=== PATIENT | female | born 1960 | race Caucasian/White ===

== ENCOUNTER 2021-02-15 18:34 | Observation (INO) | payer MEDICARE, OTHER, SELFPAY ==
[2021-02-15] VITALS (10 sets, daily range): BP systolic 111–119; BP diastolic 63–99; PULSE 83–92; RESP 13–25; TEMP 36.4–36.6; O2SAT 96–99
--- NOTE | ~2021-02-15 | CT_ITS ---
EXAMINATION: CT cervical spine wo con DATE: 02/15/2021 19:08 INDICATION: Neck pain. TECHNIQUE: Computed tomography (CT) of the cervical spine was performed without intravenous contrast. Automated exposure control and iterative reconstruction technique were employed. The dose-length pro duct was 137.50 mGy-cm. COMPARISON: None FINDINGS: There is mild emphysema. There is 3 degrees levocurvature of cervical spine. Vertebral body heights are normal. There is mildly decreased disc height at C4-C5, moderately decreased disc height at C5-C6, and severely decreased disc height at C6-C7. The following disc levels are specifically di scussed: C2-C3: There is no uncovertebral joint osteoarthritis. There is no facet joint osteoarthritis. There is no neural foraminal stenosis. There is no central canal stenosis. C3-C4: There is no uncovertebral joint osteoarthritis. There is no facet joint osteoarthritis. There is no neural foraminal stenosis. There is no central canal stenosis. C4-C5: There is mild left uncovertebral joint osteoarthritis. There is no facet joint osteoarthritis. There is mild left neural foraminal stenosis. There is no central canal stenosis. C5-C6: There is severe right and mild left uncovertebral joint osteoarthritis. There is no facet join t osteoarthritis. There is mild right neural foraminal stenosis. There is no central canal stenosis. C6-C7: There is severe bilateral uncovertebral joint osteoarthritis. There is no facet joint osteoart hritis. There is mild bilateral neural foraminal stenosis. There is no central canal stenosis. C7-T1: There is no uncovertebral joint osteoarthritis. There is mild bilateral facet joint osteoarthr itis. There is no neural foraminal stenosis. There is no central canal stenosis. IMPRESSION: 1. No fracture. 2. Severe cervical spondylosis. Reviewed, dictated and finalized at location A.
--- NOTE | ~2021-02-15 | XR_ITS ---
EXAMINATION: XR hip LT 2V w AP pelvis DATE: 02/15/2021 19:21 INDICATION: Left hip pain. TECHNIQUE: An anteroposterior view of the pelvis and 2 views of left hip were obtained. COMPARISON: Abdomen radiographs 03/09/2016 FINDINGS: There is dextroscoliosis and moderate spondylosis of lumbar spine. There are fractures of l eft superior and inferior pubic rami and right parasymphyseal pubis. The hip joint spaces are normal. IMPRESSION: 1. Fractures of the left superior and inferior pubic rami and right parasymphyseal pubis. Reviewed, dictated and finalized at location A. IMPRESSION: 1. Fractures of the left superior and inferior pubic rami and right parasymphys eal pubis.
--- NOTE | ~2021-02-15 | XR_ITS ---
EXAMINATION: XR chest 1V DATE: 02/15/2021 19:21 INDICATION: Chest injury. TECHNIQUE: A single frontal view of the chest was obtained. COMPARISON: Chest 2 views 09/13/2014 FINDINGS: There are lucencies and interstitial opacities in the lungs, consistent with emphysema. No pleural effusion or pneumothorax. The heart size is normal. IMPRESSION: 1. Emphysema. Reviewed, dictated and finalized at location A. IMPRESSION: 1. Emphysema.
--- NOTE | ~2021-02-15 | CT_ITS ---
EXAMINATION: CT brain wo con DATE: 02/15/2021 19:08 INDICATION: Head injury. TECHNIQUE: Computed tomography (CT) of the head was performed without intravenous contrast. The mA wa s adjusted according to patient size. Iterative reconstruction technique was employed. The dose-lengt h product was 681.00 mGy-cm. COMPARISON: None FINDINGS: There are scattered areas of low attenuation in the cerebral white matter. There is no intr acranial hemorrhage, acute infarction, or abnormal intracranial mass lesion. The ventricles are rosemary l in size. The paranasal sinuses are clear. The orbits are normal. The mastoid air cells are normal. IMPRESSION: 1. Mild nonspecific cerebral white matter disease, which likely represents chronic small vessel ische ernestina disease. Reviewed, dictated and finalized at location A. IMPRESSION: 1. Mild nonspecific cerebral white matter disease, which likely represents mushroom picker ana small vessel ischemic disease.
--- NOTE | ~2021-02-15 | XR_ITS ---
EXAMINATION: XR abdomen obstructive series EXAM DATE: 02/17/2021 13:20 INDICATION: Abd pain, bloating, N/V . TECHNIQUE: Frontal upright projection of the upper abdomen, frontal projection of the lower abdomen f or interpretation. Comparison is made to prior examination from 03/09/2016. FINDINGS: There is moderate to large amount of colonic stool and gas. No dilated small bowel. Lung b ases are unremarkable. There is no organomegaly. No suspicious soft tissue calcifications identified. No suspicion of free intraperitoneal gas. IMPRESSION: Moderate to large amount of colonic stool and gas. Reviewed, dictated and finalized at location A.
--- NOTE | 2021-02-15 19:46 | PC.NURSE ---
C-collar removed per FAUSTO Barreto.
--- NOTE | 2021-02-15 20:24 | ED.GENADULT ---
HPI - General Adult General Chief complaint: Fall <Mami Barreto PA-C - Last Filed: 02/15/21 20:38> Stated complaint: fall in shower <MIKHAIL Parham Last Filed: 02/15/21 20:38> Time Seen by Provider: 02/15/21 18:37 <Mami Barreto PA-C - Last Filed: 02/15/21 20:38> Source: patient <MIKHAIL Parham Last Filed: 02/15/21 20:38> Mode of arrival: EMS <MIKHAIL Parham Last Filed: 02/15/21 20:38> Limitations: no limitations <MIKHAIL Parham Last Filed: 02/15/21 20:38> History of Present Illness HPI narrative: Patient with history of dementia, depression and hyperlipidemia presents with chief complaint of pain to her neck, left side of her pelvis and hip that began today at approximately 430pm after she slipped outside of her bachelor. Patient states that she landed on her left side and was unable to stand up so she scooted on the floor and pool with the help court. She states the aids came in, as she resides in [facility], and they called EMS. Patient states she is not sure if she hit her head or loss consciousness. She reports discomfort to her neck. She denies any other areas of pain. She is at her baseline mentation and denies chest pain, sob, or any other injuries. <Mami Barreto PA-C - Last Filed: 02/15/21 20:38> Related Data Home medications: Home Medications Medication Instructions Recorded Confirmed alendronate 70 mg PO WEEKLY 02/15/21 02/15/21 amlodipine 10 mg PO DAILY 02/15/21 02/15/21 naproxen 375 mg PO BID PRN 02/15/21 02/15/21 rosuvastatin [Crestor] 10 mg PO DAILY 02/15/21 02/15/21 venlafaxine 150 mg PO QAM 02/15/21 02/15/21 <MIKHAIL Parham Last Filed: 02/15/21 20:38> Allergies/adverse reactions: Allergies Allergy/AdvReac Type Severity Reaction Status Date / Time Penicillins Allergy Unknown Unknown Verified 02/15/21 21:59 <Mami Barreto PA-C - Last Filed: 02/15/21 20:38> Review of Systems Review of Systems: Narrative: CONSTITUTIONAL: Denies fever, chills, or sweats. EYES: Denies visual changes, redness, or discharge. ENT: Denies rhinorrhea, congestion, sore throat, or otalgia. CARDIOVASCULAR: Denies chest pain, palpitations, or edema. RESPIRATORY: Denies cough or dyspnea. GASTROINTESTINAL: Denies abdominal pain, nausea, vomiting, or diarrhea. GENITOURINARY: Denies dysuria or hematuria. SKIN: Denies rash or itching. MUSCULOSKELETAL: Reports neck, pelvis and left hip pain denies back pain, joint pain, or myalgia. NEUROLOGIC: Denies headache, numbness, dizziness, or weakness. PSYCHIATRIC: Denies anxiety or depression. <Mami Barreto PA-C - Last Filed: 02/15/21 20:38> PMFSH Past Medical History Medical History: Medical History Dementia Depressive disorder Essential (primary) hypertension Hyperlipidemia Left forearm fracture <Mami Barreto PA-C - Last Filed: 02/15/21 20:38> Family History Family History: Family History Other Breast cancer <Mami Barreto PA-C - Last Filed: 02/15/21 20:38> Social History Social History: Social History Smoking packs per day: 0.5 Smoking cigarettes per day: 10.0 Years smoked: 40 Smoking pack-years: 20.00 Smoking status: Light tobacco smoker Alcohol intake: never Substance use: never Substance use type: does not use Gender identity (if verbalized by the patient): Female Spiritual care concerns: No <Mami Barreto PA-C - Last Filed: 02/15/21 20:38> Exam Narrative: Exam Narrative: GENERAL: Well-appearing, well-nourished, and in no acute distress. HEAD: Normocephalic, atraumatic. No hematomas or lacerations EYES: PERRLA and EOMI. ENT: Nares clear, no rhinorrhea or epistaxis. Mucous membranes moist. Oropharynx without tonsillar hypertrophy exudate or oth
--- NOTE | 2021-02-15 20:43 | PC.NURSE ---
pt's sister would like to be contacted prior to any decision making regarding pt. pt is aware of this and in agreement. Raine Osborn [phone]
[2021-02-15] MEDS: MORPHINE SULFATE (*CRX) 4 MG/ML INJ 2 MG IV PUSH ×2 (21:01→23:36)
--- NOTE | 2021-02-15 21:11 | PM.IMHP ---
H&P: HPI History of Present Illness Date/Time: 02/15/21 21:11 Chief Complaint: Acute fall, pelvic pain, and ambulatory dysfunction Narrative: This is a pleasant 60-year-old female with known past medical history of chronic hypertension, hyperlipidemia, and osteoporosis who presented to the hospital today after suffering a fall in her bathroom around 4:30 p.m. and not able to get up afterwards. The patient describes getting out of the shower and going to the sink when suddenly she slipped and fell on her left side. She landed on her left hip and could not get up off the ground. She experience pelvic discomfort. She denies any loss of consciousness or head trauma. The patient also denies any seizure-like activity or passing out. She she is known to live in assisted living. She was brought to the hospital for evaluation and found to have fractures of the left superior and inferior pubic rami and right parasymphyseal pubis. ER provider has consulted orthopedic surgeon, Dr. Archer who has recommended that the patient be admitted to the hospital and he will evaluate her the morning. On further questioning the patient denies any recent fevers, chills, headache, dizziness, lightheadedness, blurry vision, chest pain, shortness of breath, cough, nausea, vomiting, abdominal pain, dysuria, hematuria, diarrhea, rectal bleeding, or focal neurological deficits. The patient smokes between half a pack to 1 pack of cigarettes daily. Review of Systems Review of Systems: All systems reviewed & are unremarkable except as noted in HPI and below PMFSH Past Medical History Medical History Dementia Depressive disorder Essential (primary) hypertension Hyperlipidemia Left forearm fracture Family History Family History Other Breast cancer Social History Social History Smoking status: Light tobacco smoker Alcohol intake: never Gender identity (if verbalized by the patient): Female Comments Past surgical history includes left arm fracture repair Meds Home Medications and Allergies Home Medications Medication Instructions Recorded Confirmed Type alendronate 70 mg PO WEEKLY 02/15/21 History amlodipine 10 mg PO DAILY 02/15/21 History naproxen 375 mg PO BID PRN 02/15/21 History rosuvastatin [Crestor] 10 mg PO DAILY 02/15/21 History venlafaxine 150 mg PO QAM 02/15/21 History Allergies Allergy/AdvReac Type Severity Reaction Status Date / Time Penicillins Allergy Unknown Unknown Verified 02/15/21 18:39 Vital Signs Vital Signs - 24 hr 02/15/21 18:36 02/15/21 18:39 02/15/21 18:40 Temperature 36.4 C Pulse Rate 92 89 89 Respiratory Rate 13 13 17 Blood Pressure 119/75 Pulse Oximetry 97 97 02/15/21 18:45 02/15/21 18:47 02/15/21 18:50 Temperature Pulse Rate 91 90 85 Respiratory Rate 20 25 H 23 H Blood Pressure 113/99 H 113/99 H Pulse Oximetry 96 97 97 02/15/21 19:57 02/15/21 20:00 02/15/21 20:01 Temperature Pulse Rate 83 83 87 Respiratory Rate 19 18 17 Blood Pressure 119/74 Pulse Oximetry 97 96 99 Exam Const: General: cooperative, alert and awake Nutritional Appearance: well nourished Orientation/consciousness: patient oriented x3 HENMT: Head: normal to inspection General nose exam: Normal external nose present Face and sinus: normal facial exam Mouth: Yes Normal oral and palatal mucosa present and Yes oropharynx normal Eyes: Pupils: Equal, round and reactive pupils present EOM: EOMs intact bilaterally Neck: Neck: supple and no JVD Thyroid: thyroid normal Lymphatic: lymphadenopathy not noted Resp: Effort & Inspection: normal respiratory effort Auscultation: clear to auscultation bilaterally Cardio: Rate: regular rate Rhythm: regular rhythm Heart sounds: no murmurs GI: Inspection: normal to inspection Auscul
--- NOTE | 2021-02-15 21:58 | ADMGEN ---
This patient, Cheri Kumar, was admitted to 2 Medical Room 248-01 @[id number]. Patient/family oriented to hospital policies and general routines including ID bracelet, bed and alarms, visiting hours, pain management, procedures, bathroom and other care routines, personal items, smoking policy, room service/diet, and visiting hours. Information on how to activate the Rapid Response Team has been discussed. Patient/Family are encouraged to report perceived risks to care and to ask questions if they do not understand what they are told or what they should do.
[2021-02-15] MEDS: NICOTINE (*PBKC) 14 MG PATCH 1 PATCH TRANSDERM (23:32)
[2021-02-16 06:00] VITALS: BP 100/64; PULSE 74; RESP 16; TEMP 36.9; O2SAT 100
[2021-02-16] MEDS: MORPHINE SULFATE (*CRX) 4 MG/ML INJ 2 MG IV PUSH ×4 (06:01→19:49)
[2021-02-16] MEDS: NICOTINE (*PBKC) 14 MG PATCH 1 PATCH TRANSDERM (08:02)
[2021-02-16] MEDS: VENLAFAXINE HCL XR 75 MG CAP.ER.24H 150 MG PO (08:02)
[2021-02-16] MEDS: ROSUVASTATIN 10 MG TABLET PO (08:02)
[2021-02-16 08:28] LABS: Hematocrit 39.1 % (37.0-47.0); Hemoglobin 13.2 g/dL (12.0-15.0); Mean Corpuscular HGB Conc 33.8 g/dl (32-36); Mean Corpuscular Hemoglobin 30.8 pg (26-34); Mean Corpuscular Volume 91.1 fl (80-100); Mean Platelet Volume 11.1 fl (7.4-10.4); Platelet Count Result 239 k/mm3 (150-375); Red Blood Count 4.29 M/mm3 (4.2-5.4); White Blood Count 9.7 K/mm3 (4.5-10.0)
[2021-02-16 08:40] LABS: Anion Gap 7 mmol/L (8-16); Blood Urea Nitrogen 7 mg/dL (7-17); Calcium 9.1 mg/dL (8.4-10.2); Carbon Dioxide 26 mmol/L (22-30); Chloride 101 mmol/L (98-107); Estimated CRCL calculation 70 ml/min; Estimated Glomerular Filt Rate > 60; Glucose 122 mg/dL (65-105); Potassium 3.6 mmol/L (3.4-5.0); Sodium 134 mmol/L (137-145)
--- NOTE | 2021-02-16 10:58 | PM.IMPN ---
Progress Note: A&P Assessment and Plan (1) Closed fracture of pubic ramus: Qualifiers: Encounter type: initial encounter Laterality: left Qualified Code(s): S32.592A - Other specified fracture of left pubis, initial encounter for closed fracture Code(s): S32.599A - Other specified fracture of unspecified pubis, initial encounter for closed fracture Status: Acute Assessment and Plan: She had a mechanical fall on 02/15/2021 and suffered a fracture. Hip and pelvis x-ray demonstrates fracture of the left superior and inferior pubic rami and right parasymphyseal pubis. She is having significant pain at this time. Orthopedic surgery has been consulted and input is appreciated. Await further recommendations. Analgesics available as needed for pain control. Supportive care. Continue Inman catheter Weight-bearing per orthopedic surgery. (2) Closed fracture of symphysis pubis: Qualifiers: Encounter type: initial encounter Laterality: left Qualified Code(s): S32.592A - Other specified fracture of left pubis, initial encounter for closed fracture Code(s): S32.599A - Other specified fracture of unspecified pubis, initial encounter for closed fracture Status: Acute Assessment and Plan: As above. (3) Essential (primary) hypertension: Code(s): I10 - Essential (primary) hypertension Status: Chronic Assessment and Plan: Blood pressure has been reviewed and is fairly well controlled in the low-normal range. Last BP 100/64. Amlodipine held this morning in light of lower end of normal BP in combination with IV narcotics. Monitor BP trends closely. Adjust medication regimen as needed. (4) Depressive disorder: Code(s): F32.9 - Major depressive disorder, single episode, unspecified Status: Chronic Assessment and Plan: Mood is stable at this time. Continue home venlafaxine (5) Tobacco dependence: Code(s): F17.200 - Nicotine dependence, unspecified, uncomplicated Status: Chronic Assessment and Plan: She smokes a half pack per day. She desired a nicotine patch while inpatient. Continue nicotine patch. I have educated her on smoking cessation for 3 minutes. Subjective Date/time seen: 02/16/21 10:58 Interval history: Date of service: 02/17/2020 Cheri Kumar is a 60-year-old female with a history of dementia, hypertension, hyperlipidemia, and depression who is seen in follow-up for closed pubic ramus fracture secondary to mechanical fall. She is having a significant amount of pain today across her entire pelvic region. She rates it as 15/10. Any small amount of movement causes her pretty significant pain. She also has having some pain in the buttocks. Denies numbness or tingling in the lower extremities. Denies nausea, vomiting, fever, chills. Appetite has been fair. Denies dizziness or lightheadedness. Denies chest pain, shortness of breath, cough. No issues with Inman catheter. Review of Systems Review of Systems: All systems reviewed & are unremarkable except as noted in HPI and below Exam Narrative: Exam Narrative: Ms. Kumar is a well-nourished, well-appearing 60-year-old female who is lying supine in bed. She is uncomfortable due to pain but is in NARD. Neuro: awake, alert and oriented x4, speech clear, no focal neuro deficits noted. HEENMT: normocephalic, atraumatic, EOMI, sclerae anicteric, moist oral mucosa, tongue midline, nares patent Neck: supple, no lymphadenopathy Respiratory: clear to auscultation anteriorly, nonlabored breathing Cardio: regular rate, regular rhythm with S1-S2 Abdomen: nondistended, normoactive bowel sounds, soft, nontender to palpation, no rigidity or guarding : inman catheter patent and draining brandon colored urine Extremities: Legs equal length. Entire pelvic region is tender to palpation. BLE without edema, erythema, cyanosis, clubbing, or tende
[2021-02-16] MEDS: HYDROcodone/acetaminophen (*CRX) 5-325 MG TABLET 1 TAB PO ×2 (11:14→17:17)
[2021-02-16 14:00] VITALS: BP 117/67; PULSE 74; RESP 16; TEMP 36.5; O2SAT 95
--- NOTE | 2021-02-16 15:46 | PM.CNOR ---
Assessment and Plan Assessment and plan (1) Closed fracture of pubic ramus: Qualifiers: Encounter type: initial encounter Laterality: left Qualified Code(s): S32.592A - Other specified fracture of left pubis, initial encounter for closed fracture Code(s): S32.599A - Other specified fracture of unspecified pubis, initial encounter for closed fracture Status: Acute (2) Closed fracture of symphysis pubis: Qualifiers: Encounter type: initial encounter Laterality: left Qualified Code(s): S32.592A - Other specified fracture of left pubis, initial encounter for closed fracture Code(s): S32.599A - Other specified fracture of unspecified pubis, initial encounter for closed fracture Status: Acute Assessment and Plan: Acute fractures after fall from a standing height. Severe pain and difficulty mobilizing. I reviewed the x-rays personally. Mildly displaced fractures to the superior and inferior pubic rami with a fracture line extending into the pubic symphysis. Patient is expected to have extreme difficulty mobilizing over the next few weeks. Mobility will be limited by pain. She may weight bear as tolerated, but is not expected to be able to mobilize easily initially. She will need a walker. Expect functional recovery over the next 4-6 weeks. History of Present Illness HPI Consult date: 02/16/21 Chief complaint: PUBIC RAMI and PUBIS FRACTURES Narrative: Patient complains of acute hip pain. Fell from standing height. Admitted through the emergency room for definitive management. No previous hip pain. Comfortable at rest. No numbness, tingling, or other associated symptoms. No other concurrent medical issues. Review of systems unremarkable other than history of smoking. She lives in an assisted living. Review of Systems Review of Systems: Narrative: Denies loss of consciousness. All systems reviewed & are unremarkable except as noted in HPI and below PMFSH Past Medical History Medical History Dementia Depressive disorder Essential (primary) hypertension Hyperlipidemia Left forearm fracture Family History Family History Other Breast cancer Social History Social History Smoking packs per day: 0.5 Smoking cigarettes per day: 10.0 Years smoked: 40 Smoking pack-years: 20.00 Smoking status: Light tobacco smoker Alcohol intake: never Substance use: never Substance use type: does not use Gender identity (if verbalized by the patient): Female Spiritual care concerns: No Meds Home Medications and Allergies Home Medications Medication Instructions Recorded Confirmed Type alendronate 70 mg PO WEEKLY 02/15/21 02/15/21 History amlodipine 10 mg PO DAILY 02/15/21 02/15/21 History naproxen 375 mg PO BID PRN 02/15/21 02/15/21 History rosuvastatin [Crestor] 10 mg PO DAILY 02/15/21 02/15/21 History venlafaxine 150 mg PO QAM 02/15/21 02/15/21 History Allergies Allergy/AdvReac Type Severity Reaction Status Date / Time Penicillins Allergy Unknown Unknown Verified 02/15/21 21:59 Vital Signs Vital Signs - 24 hr 02/15/21 18:36 02/15/21 18:39 02/15/21 18:40 Temperature 36.4 C Pulse Rate 92 89 89 Respiratory Rate 13 13 17 Blood Pressure 119/75 Pulse Oximetry 97 97 02/15/21 18:45 02/15/21 18:47 02/15/21 18:50 Temperature Pulse Rate 91 90 85 Respiratory Rate 20 25 H 23 H Blood Pressure 113/99 H 113/99 H Pulse Oximetry 96 97 97 02/15/21 19:57 02/15/21 20:00 02/15/21 20:01 Temperature Pulse Rate 83 83 87 Respiratory Rate 19 18 17 Blood Pressure 119/74 Pulse Oximetry 97 96 99 02/15/21 22:00 02/16/21 06:00 02/16/21 14:00 Temperature 36.6 C 36.9 C 36.5 C Pulse Rate 87 74 74 Respiratory Rate 16 16 16 Blood Pressure 111/63 100/64 117/
[2021-02-16 20:00] VITALS: PULSE 83; RESP 16; O2SAT 90
[2021-02-16 21:41] VITALS: BP 128/71; PULSE 83; RESP 16; TEMP 36.6; O2SAT 90
[2021-02-16] MEDS: ONDANSETRON INJ 4 MG/2 ML VIAL IV PUSH (23:14)
[2021-02-17] MEDS: MORPHINE SULFATE (*CRX) 4 MG/ML INJ 2 MG IV PUSH ×3 (00:47→16:58)
--- NOTE | 2021-02-17 01:01 | PC.NURSE ---
Pt continues to c/o nausea with one small emesis, Zofran given with little results will hold oral fluids for now.
[2021-02-17] MEDS: ONDANSETRON INJ 4 MG/2 ML VIAL IV PUSH ×2 (04:51→16:58)
[2021-02-17 05:43] VITALS: BP 147/80; PULSE 94; RESP 16; TEMP 36.4; O2SAT 92
[2021-02-17 05:46] LABS: Anion Gap 6 mmol/L (8-16); Blood Urea Nitrogen 8 mg/dL (7-17); Calcium 8.8 mg/dL (8.4-10.2); Carbon Dioxide 28 mmol/L (22-30); Chloride 96 mmol/L (98-107); Estimated CRCL calculation 83 ml/min; Estimated Glomerular Filt Rate > 60; Glucose 124 mg/dL (65-105); Potassium 3.8 mmol/L (3.4-5.0); Sodium 130 mmol/L (137-145)
[2021-02-17 07:11] LABS: Vitamin D 25 Hydroxy 51.9 ng/mL
[2021-02-17] MEDS: PROMETHAZINE HCL 25 MG/ML AMPUL 12.5 MG IV PUSH (08:48)
--- NOTE | 2021-02-17 08:54 | PCOTNOTE ---
Per RN, hold until later in AM due to severe nausea and vomiting. Will attempt OT evaluation at later time.
--- NOTE | 2021-02-17 09:00 | PC.NURSE ---
Morning meds held until nausea under better control. Spoke with Sarah LAMBERT and gave Phenergan IVP.
--- NOTE | 2021-02-17 09:06 | PCPTNOTE ---
Hold eval due to nausea and vomiting. Will try at later time.
--- NOTE | 2021-02-17 11:06 | PM.IMPN ---
Progress Note: A&P Assessment and Plan (1) Closed fracture of pubic ramus: Qualifiers: Encounter type: initial encounter Laterality: left Qualified Code(s): S32.592A - Other specified fracture of left pubis, initial encounter for closed fracture Code(s): S32.599A - Other specified fracture of unspecified pubis, initial encounter for closed fracture Status: Acute Assessment and Plan: She had a mechanical fall on 02/15/2021 and suffered a fracture. Hip and pelvis x-ray demonstrates fracture of the left superior and inferior pubic rami and right parasymphyseal pubis. Pain is 7/10 at this time Orthopedic surgery has been consulted and input is appreciated. Ortho recommendations: Weight-bearing as tolerated with walker. Anticipate difficulty with early mobility with overall improvement in the next 4-6 weeks. Analgesics available as needed for pain control. Supportive care. Continue [place] catheter (2) Closed fracture of symphysis pubis: Qualifiers: Encounter type: initial encounter Laterality: left Qualified Code(s): S32.592A - Other specified fracture of left pubis, initial encounter for closed fracture Code(s): S32.599A - Other specified fracture of unspecified pubis, initial encounter for closed fracture Status: Acute Assessment and Plan: As above. (3) Essential (primary) hypertension: Code(s): I10 - Essential (primary) hypertension Status: Chronic Assessment and Plan: Blood pressure has been reviewed and is fairly well controlled in the low-normal range. Last BP 147/80 prior to administration of antihypertensives Continue amlodipine Monitor BP trends closely. Adjust medication regimen as needed. (4) Depressive disorder: Code(s): F32.9 - Major depressive disorder, single episode, unspecified Status: Chronic Assessment and Plan: Mood is stable at this time. Continue home venlafaxine (5) Tobacco dependence: Code(s): F17.200 - Nicotine dependence, unspecified, uncomplicated Status: Chronic Assessment and Plan: She smokes a half pack per day. She desired a nicotine patch while inpatient. Continue nicotine patch. I have educated her on smoking cessation for 3 minutes. (6) Nausea and vomiting: Code(s): R11.2 - Nausea with vomiting, unspecified Status: Acute Assessment and Plan: Onset last night. No episodes of emesis today. She has not been eating or drinking and did not take her medications this morning. May be due to IV morphine. Less likely consideration is bowel obstruction versus ileus given abdominal discomfort and complaints of bloating, however not consistent with physical exam findings. Antiemetics available as needed Recommend clear liquids until tolerating PO intake and then bland diet Will administer gentle IV fluids with instructions to saline lock when tolerating p.o. intake. Obtain KUB Subjective Date/time seen: 02/17/21 11:06 Interval history: Date of service: 02/18/2020 Cheri Kumar is a 60-year-old female with a history of dementia, hypertension, hyperlipidemia, and depression who is seen in follow-up for closed pubic ramus fracture secondary to mechanical fall. She is still having rather severe pain today across the pelvis and in the buttocks, but is improved from yesterday. When she is moving, her pain is a 10/10. At rest her pain is a 7/10. She is hesitant to get up and ambulate due to her pain. Denies numbness or tingling in the extremities. She has been feeling nauseous since last night and had a couple episodes of emesis overnight. No episodes of emesis today, however she has been hesitant to eat, drink, or take her medications. She complains of a bit of abdominal discomfort, which she describes as a bloating sensation. She can't recall if she has had nausea or vomiting in the past with morphine. Denies diarrhea. Oth
[2021-02-17] MEDS: SODIUM CHLORIDE 0.9% IV 1,000 ML 70 ML IV CONT (13:42)
[2021-02-17] MEDS: NICOTINE (*PBKC) 14 MG PATCH 1 PATCH TRANSDERM (13:43)
[2021-02-17] MEDS: amLODIPine BESYLATE 5 MG TABLET 10 MG PO (13:43)
[2021-02-17] MEDS: VENLAFAXINE HCL XR 75 MG CAP.ER.24H 150 MG PO (13:44)
[2021-02-17] MEDS: ROSUVASTATIN 10 MG TABLET PO (13:44)
[2021-02-17 14:00] VITALS: BP 124/68; PULSE 82; RESP 20; TEMP 36.2; O2SAT 95
[2021-02-17] MEDS: polyethylene glycoL 3350 17 GM POWD.PACK PO (16:51)
[2021-02-17 19:28] LABS: SARS-CoV-2 RNA PCR Negative
[2021-02-17 20:00] VITALS: PULSE 82; RESP 20; O2SAT 95
[2021-02-17 22:00] VITALS: BP 109/65; PULSE 83; RESP 20; TEMP 36.8; O2SAT 94
[2021-02-17] MEDS: HYDROcodone/acetaminophen (*CRX) 5-325 MG TABLET 1 TAB PO (23:33)
[2021-02-18] MEDS: HYDROcodone/acetaminophen (*CRX) 5-325 MG TABLET 1 TAB PO ×4 (03:37→15:48)
[2021-02-18 05:53] LABS: Anion Gap 3 mmol/L (8-16); Blood Urea Nitrogen 6 mg/dL (7-17); Calcium 8.4 mg/dL (8.4-10.2); Carbon Dioxide 31 mmol/L (22-30); Chloride 102 mmol/L (98-107); Estimated CRCL calculation 70 ml/min; Estimated Glomerular Filt Rate > 60; Glucose 98 mg/dL (65-105); Potassium 4.1 mmol/L (3.4-5.0); Sodium 136 mmol/L (137-145)
[2021-02-18 06:00] VITALS: BP 107/71; PULSE 84; RESP 18; TEMP 36.7; O2SAT 94
[2021-02-18] MEDS: amLODIPine BESYLATE 5 MG TABLET 10 MG PO (08:31)
[2021-02-18] MEDS: NICOTINE (*PBKC) 14 MG PATCH 1 PATCH TRANSDERM (08:32)
[2021-02-18] MEDS: polyethylene glycoL 3350 17 GM POWD.PACK PO (08:32)
[2021-02-18] MEDS: ROSUVASTATIN 10 MG TABLET PO (08:32)
[2021-02-18] MEDS: DOCUSATE SODIUM 100 MG CAPSULE PO (08:32)
[2021-02-18] MEDS: VENLAFAXINE HCL XR 75 MG CAP.ER.24H 150 MG PO (08:33)
[2021-02-18 14:00] VITALS: BP 98/52; PULSE 97; RESP 20; TEMP 36.6; O2SAT 97
--- NOTE | 2021-02-18 15:39 | PM.DS ---
DS: Admitting Diagnosis Admitting Diagnosis Admitting Diagnosis: Pubic fractures DS: Discharge Diagnosis Discharge Diagnosis (1) Closed fracture of pubic ramus: Qualifiers: Encounter type: initial encounter Laterality: left Qualified Code(s): S32.592A - Other specified fracture of left pubis, initial encounter for closed fracture Code(s): S32.599A - Other specified fracture of unspecified pubis, initial encounter for closed fracture Status: Acute Assessment and Plan: Discharge Summary (Date of service 02/18/21): Ms. Kumar is a 60 y.o. female with PMH significant for dementia, hypertension, hyperlipidemia, and depression who presented to the emergency department 02/15/21 for the evaluation of left hip and pelvic discomfort with inability to get up off the ground after suffering a mechanical fall in the bathroom. She denied any loss of consciousness and head trauma. Vitals were stable on arrival to the emergency department. CT brain demonstrated mild nonspecific cerebral white matter disease, likely branch customer service representative of chronic small vessel disease. Cervical spine CT demonstrated severe cervical spondylosis without fracture. CXR demonstrated emphysema. Hip and pelvis x-ray demonstrated fracture of the left superior and inferior pubic rami and right parasymphyseal pubis. Orthopedic surgery was consulted and she was admitted to the hospitalist service. Inman was placed initially due to limited mobility and severe pain. She was treated with analgesics as needed. Orthopedic surgery recommended weight-bearing as tolerated with walker with anticipated difficulty with early mobility and overall improvement anticipated in the next 4-6 weeks. She worked with PT/OT and rehab was recommended. She also had nausea, vomiting, and constipation. She was treated with antiemetics, colace, and miralax and had several bowel movements. Her symptoms resolved. She voided following inman removal. She was tolerating her diet well with no further nausea or vomiting. Pain was controlled with oral noco during the last 24 hours of her stay and she was accepted to the [facility] to continue rehab. She was felt stable for discharge from an orthopedic surgery standpoint. She was discharged in hemodynamically stable condition on the afternoon of 02/18/21. (2) Closed fracture of symphysis pubis: Qualifiers: Encounter type: initial encounter Laterality: left Qualified Code(s): S32.592A - Other specified fracture of left pubis, initial encounter for closed fracture Code(s): S32.599A - Other specified fracture of unspecified pubis, initial encounter for closed fracture Status: Acute Assessment and Plan: As above. (3) Essential (primary) hypertension: Code(s): I10 - Essential (primary) hypertension Status: Chronic Assessment and Plan: Blood pressures were reasonable. Her prior to admission amlodipine was continued. (4) Depressive disorder: Code(s): F32.9 - Major depressive disorder, single episode, unspecified Status: Chronic Assessment and Plan: Mood is stable at this time. Prior to admission venlafaxine was continued. (5) Tobacco dependence: Code(s): F17.200 - Nicotine dependence, unspecified, uncomplicated Status: Chronic Assessment and Plan: She smokes a half pack per day. She desired a nicotine patch while inpatient. Smoking cessation was encouraged and potential adverse reactions were discussed. She verbalized understanding but she expressed that she is not motivated to quit at this time. I encouraged she consider smoking cessation and follow-up with her PCP outpatient. (6) Nausea and vomiting: Code(s): R11.2 - Nausea with vomiting, unspecified Status: Resolved Assessment and Plan: Resolved. She developed emesis the night of 4 which was felt related to IV morphine vs constipation. Plain films demonstrated large volume of moderate to lar
== END 2021-02-18 16:30 ==
LOC: ANHED 20:33 → ANH2MED 20:35
PROVIDERS: Physician Assistant; Admitting Provider Family Medicine; Emergency Provider Emergency Medicine; Visit Provider Physician Assistant
DX: S32.592A Other specified fracture of left pubis, initial encounter for closed fracture (principal); W18.2XXA Fall in (into) shower or empty bathtub, initial encounter; R11.2 Nausea with vomiting, unspecified; I10 Essential (primary) hypertension; E78.5 Hyperlipidemia, unspecified; F32.9 Major depressive disorder, single episode, unspecified; M81.0 Age-related osteoporosis without current pathological fracture; F03.90 Unspecified dementia, unspecified severity, without behavioral disturbance, psychotic disturbance, mood disturbance, and anxiety; F17.210 Nicotine dependence, cigarettes, uncomplicated; Z20.822 Contact with and (suspected) exposure to COVID-19
CPT/HCPCS: 36415; 51702; 70450; 71045; 72125; 73502; 74019; 80048; 82306; 85014; 85018; 85027; 96361; 96365; 96375; 96376; 97161; 97165; 97530; 97535; 99285; A9270; C9803; G0378; J0131; J2270; J2405; J2550; J7030; U0003; U0005

== ENCOUNTER 2021-02-18 16:52 | IRF | payer MEDICARE, OTHER, SELFPAY ==
[2021-02-18 17:07] VITALS: BMI 20.7
[2021-02-18 17:08] VITALS: BP 110/56; PULSE 94; RESP 20; TEMP 36.8; O2SAT 99
--- NOTE | 2021-02-18 17:34 | ADMGEN ---
Arrived from 2nd floor via bed at 1635. This patient, Cheri Kumar, was admitted to [facility] Room 226-01. Patient/family oriented to hospital policies and general routines including ID bracelet, bed and alarms, visiting hours, pain management, procedures, bathroom and other care routines, personal items, smoking policy, room service/diet, and visiting hours. Information on how to activate the Rapid Response Team has been discussed. Patient/Family are encouraged to report perceived risks to care and to ask questions if they do not understand what they are told or what they should do.
--- NOTE | 2021-02-18 17:36 | WPDREHABHP ---
H&P: HPI History of Present Illness Date/Time: 02/18/21 17:36 Chief Complaint: fall with pelvic fracture Narrative: HISTORY OF PRESENT ILLNESS: The patient's primary rehab impairment category is orthopedic lower extremity fracture The etiologic diagnosis is fractures of the left superior and inferior pubic rami and right parasymphyseal pubis I saw this patient [id number] on 02/18/2021 The patient is a 60-year-old female with past medical history of smoker, chronic hypertension, dementia, hyperlipidemia, depression and osteoporosis. The patient presented [facility] on 02/15/2021 after suffering a fall in her bathroom around 4:30 p.m.. Patient states that she was getting out of the shower when she slipped and fell on her left side. Patient landed on her left hip and could not get up. Workup: hip pelvis x-ray revealed fractures of the left superior inferior pubic rami and right parasymphyseal pubis. Head CT showed mild nonspecific cerebral white matter disease, which is likely representing chronic small vessel ischemic disease. Cervical spine CT showed severe cervical spondylosis. Chest x-ray revealed emphysema. . Lab work showed hyponatremia and hyperglycemia. Hospital course on 02/16/2021 orthopedics was consulted and recommended weight-bearing as tolerated with a walker. On 02/16/2021 the patient developed nausea and vomiting. A KUB was ordered which revealed moderate to large amount of colonic stool and gas. Patient has now had numerous bowel movements since. Pain management has been using Tylenol [place] and IV morphine. The patient has SCDs in place for DVT prophylaxis and Xarelto has been added. patient was transferred to the acute rehab unit on 02/18/2021. FALLS OR SURGERIES: The patient has had No major surgeries in the 100 days prior to admission. patient has had 1 fall in the past year with injury. Specifically the fracture of the left superior and inferior pubic rami and right parasymphyseal pubis. PRIOR LEVEL OF FUNCTION: Eating was [INDEPENDENT] Oral Care was [INDEPENDENT] Toileting Hygiene was [INDEPENDENT] Shower/Bathing was [INDEPENDENT] Upper Body Dressing was [INDEPENDENT] Lower Body Dressing was [INDEPENDENT] Donning/[place] Footwear was [INDEPENDENT] Rolling Left and Right was [INDEPENDENT] Sit to Lying was [INDEPENDENT] Lying to Sitting was [INDEPENDENT] Sit to Stand was [INDEPENDENT] Bed to Chair Transfers was [INDEPENDENT] Toilet Transfers was [INDEPENDENT] Walking was [INDEPENDENT] [>500 feet] with [NO DEVICE] Wheelchair Mobility was [NOT APPLICABLE PRIOR TO ADMISSION] Stairs were [INDEPENDENT] CURRENT LEVEL OF FUNCTION: Eating was Setup or clean-up assistance Oral Care was supervision or touching assistance Toileting Hygiene was dependent Shower/Bathing was substantial are maximal assistance Upper Body Dressing was supervision or touching assistance Lower Body Dressing was dependent Donning/[place] Footwear was dependent Rolling Left and Right was partial to moderate assistance Sit to Lying was partial to moderate assistance Lying to Sitting was partial to moderate assistance Sit to Stand was partial to moderate assistance Bed to Chair Transfers were partial to moderate assistance Toilet Transfers were partial to moderate assist Walking was 3 ft with a roller walker and partial to moderate assistance Wheelchair Mobility was [] Stairs were [] GOALS: Our therapists will evaluate the patient and establish the goals. However, upon pre-admission screening, the expected goals were to be [INDEPENDENT] with self-care, [INDEPENDENT] with transfers, and [INDEPENDENT] with functional mobility so that the patient can return home. ESTIMATED LENGTH OF STAY: 7-10 days POTENTIAL BARRIERS TO DISCHARGE: [Patient lives alone.] [Family needs training.] [Severity of condition.] [ ACTIVE CO-MORBIDITIES PRESENT ON ADMISSION: Active co-morbidities include hyperten
--- NOTE | 2021-02-18 17:57 | ADMGEN ---
This patient, Cheri Kumar, was admitted to [facility] Room 226-01. Patient/family oriented to hospital policies and general routines including ID bracelet, bed and alarms, visiting hours, pain management, procedures, bathroom and other care routines, personal items, smoking policy, room service/diet, and visiting hours. Information on how to activate the Rapid Response Team has been discussed. Patient/Family are encouraged to report perceived risks to care and to ask questions if they do not understand what they are told or what they should do.
[2021-02-18] MEDS: NAPROXEN 375 MG TABLET PO (18:42)
[2021-02-18 20:00] VITALS: PULSE 87; RESP 20; O2SAT 91
[2021-02-18] MEDS: HYDROcodone/acetaminophen (*CRX) 5-325 MG TABLET 2 TAB PO (20:49)
[2021-02-18] MEDS: DOCUSATE SODIUM 100 MG CAPSULE PO (20:51)
[2021-02-18 21:33] VITALS: BP 116/71; PULSE 87; RESP 20; TEMP 36.7; O2SAT 91
[2021-02-19 05:03] LABS: Basophils Percent Auto 0.5 % (0.2-1.2); Eosinophils Absolute Auto 0.1 K/mm3 (0-0.3); Hematocrit 35.5 % (37.0-47.0); Hemoglobin 11.8 g/dL (12.0-15.0); Immature Granulocyte Absolute 0.03 K/mm3 (0.00-0.031); Immature Granulocyte Percent A 0.3 % (0-0.5); Lymphocytes Absolute Auto 1.91 K/mm3 (0.9-3.2); Lymphocytes Percent Auto 22.2 % (18.3-44.2); Mean Corpuscular HGB Conc 33.2 g/dl (32-36); Mean Corpuscular Hemoglobin 30.5 pg (26-34); Mean Corpuscular Volume 91.7 fl (80-100); Monocytes Absolute Auto 0.8 K/mm3 (0.1-0.6); Neutrophils Absolute Auto 5.8 K/mm3 (1.3-6.7); Platelet Count Result 232 k/mm3 (150-375); Red Blood Count 3.87 M/mm3 (4.2-5.4); Red Cell Distribution Width 13.7 % (11.5-14.5); White Blood Count 8.6 K/mm3 (4.5-10.0)
[2021-02-19] MEDS: HYDROcodone/acetaminophen (*CRX) 5-325 MG TABLET 1 TAB PO ×2 (05:07→16:23)
[2021-02-19 05:19] LABS: Alanine Aminotransferase 10 U/L (4-35); Albumin Level 3.6 g/dL (3.5-5.1); Alkaline Phosphatase 70 U/L (38-126); Anion Gap 3 mmol/L (8-16); Aspartate Amino Transferase 20 U/L (14-36); Bilirubin,Total 0.5 mg/dL (0.2-1.3); Blood Urea Nitrogen 7 mg/dL (7-17); Calcium 8.7 mg/dL (8.4-10.2); Carbon Dioxide 31 mmol/L (22-30); Chloride 102 mmol/L (98-107); Estimated CRCL calculation 83 ml/min; Estimated Glomerular Filt Rate > 60; Glucose 89 mg/dL (65-105); Potassium 3.7 mmol/L (3.4-5.0); Sodium 136 mmol/L (137-145)
[2021-02-19 05:32] VITALS: BP 112/56; PULSE 78; RESP 18; TEMP 36.3; O2SAT 93
[2021-02-19] MEDS: traMADol HCL (*CRX) 50 MG TABLET PO (06:34)
[2021-02-19] MEDS: RIVAROXABAN 10 MG TABLET PO (08:56)
[2021-02-19] MEDS: VENLAFAXINE HCL XR 75 MG CAP.ER.24H 150 MG PO (08:56)
[2021-02-19] MEDS: DOCUSATE SODIUM 100 MG CAPSULE PO (08:56)
[2021-02-19] MEDS: NICOTINE (*PBKC) 14 MG PATCH 1 PATCH TRANSDERM (08:56)
[2021-02-19] MEDS: amLODIPine BESYLATE 5 MG TABLET 10 MG PO (08:56)
[2021-02-19] MEDS: ROSUVASTATIN 10 MG TABLET PO (08:56)
[2021-02-19] MEDS: HYDROcodone/acetaminophen (*CRX) 5-325 MG TABLET 2 TAB PO ×2 (10:55→20:38)
[2021-02-19 12:51] VITALS: BMI 20.7
--- NOTE | 2021-02-19 13:27 | WPDNEURORHBP ---
Subjective Date/time seen: 02/19/21 13:27 Interval history: The patient's primary rehab impairment category is orthopedic lower extremity fracture The etiologic diagnosis is fractures of the left superior and inferior pubic rami and right parasymphyseal pubis I saw this patient [id number] on 02/18/2021 The patient is a 60-year-old female with past medical history of smoker, chronic hypertension, dementia, hyperlipidemia, depression and osteoporosis. The patient presented [facility] on 02/15/2021 after suffering a fall in her bathroom around 4:30 p.m.. Patient states that she was getting out of the shower when she slipped and fell on her left side. Patient landed on her left hip and could not get up. Workup: hip pelvis x-ray revealed fractures of the left superior inferior pubic rami and right parasymphyseal pubis. Head CT showed mild nonspecific cerebral white matter disease, which is likely representing chronic small vessel ischemic disease. Cervical spine CT showed severe cervical spondylosis. Chest x-ray revealed emphysema. . Lab work showed hyponatremia and hyperglycemia. Hospital course on 02/16/2021 orthopedics was consulted and recommended weight-bearing as tolerated with a walker. On 02/16/2021 the patient developed nausea and vomiting. A KUB was ordered which revealed moderate to large amount of colonic stool and gas. Patient has now had numerous bowel movements since. Pain management has been using Tylenol [place] and IV morphine. The patient has SCDs in place for DVT prophylaxis and Xarelto has been added. patient was transferred to the acute rehab unit on 02/18/2021. Sister explained that patient has cognitive deficits executive functioning, memory, patient can confabulate information. [facility] Sister related that in 2016 patient fell and broke her arm. Patient began to rely on pain meds Patient with complaints of pain. Review of Systems Review of Systems: All systems reviewed & are unremarkable except as noted in HPI and below Exam Narrative: Exam Narrative: Patient is seen during speech therapy. Patient tends to lean to the right to bear no weight through the left hip area. Patient is, and alert. Patient does lack insight into her deficits. Heart rate and rhythm is regular lungs are clear abdomen is soft nontender bilateral upper extremity strength are 4-5 right lower extremity strength is 4-5 left is essentially 2-3 days secondary to pain Objective Data Vital Signs Vital Signs: Vital Signs - 24 hr 02/18/21 17:08 02/18/21 20:00 02/18/21 21:33 Temperature 36.8 C 36.7 C Pulse Rate 94 87 87 Respiratory Rate 20 20 20 Blood Pressure 110/56 L 116/71 Pulse Oximetry 99 91 91 02/19/21 05:32 Temperature 36.3 C L Pulse Rate 78 Respiratory Rate 18 Blood Pressure 112/56 L Pulse Oximetry 93 Intake/Output Intake/Output: Intake & Output 02/16/21 02/17/21 02/18/21 02/19/21 23:59 23:59 23:59 23:59 Intake Total 240 480 Balance 240 480 Meds/Results Medications: Active Medications Generic Name Dose Route Start Last Admin Trade Name Freq PRN Reason Stop Dose Admin Acetaminophen 650 mg 02/18/21 17:34 Acetaminophen 325 Mg Tablet PO Q4H PRN Pain 1-3, Fever Hydrocodone Bitart/Acetaminophen 1 tab 02/18/21 17:34 02/19/21 05:07 Hydrocodone/Acetaminophen (*Crx) 5-325 Mg Tablet PO 1 tab Q4-6H PRN Administration pain RATED 4-5 Hydrocodone Bitart/Acetaminophen 2 tab 02/18/21 17:49 02/19/21 10:55 Hydrocodone/Acetaminophen (*Crx) 5-325 Mg Tablet PO 2 tab Q4-6H PRN Administration pain 6 OR GREATER Alendronate Sodium 70 mg 02/22/21 06:30 Alendronate Sodium 70 Mg Tablet PO Sa@0630 OTDD Amlodipine Besylate 10 mg 02/19/21 09:00 02/19/21 08:56 Amlodipine Besylate 5 Mg Tablet PO 10 mg DAILY TODD Administration Docusate Sodium 100 mg 02/18/21 21:00 02/19/21 08:56
[2021-02-19 14:00] VITALS: BP 127/56; PULSE 79; RESP 20; TEMP 36.7; O2SAT 97
--- NOTE | 2021-02-19 17:29 | RPD ---
INDIVIDUALIZED PLAN OF CARE FOR Cheri Kumar Brief Synthesis of Pre-Admission Screen, Post-Admission Evaluation and Therapy Evaluations: The patient presents to rehab with fractures of the left superior and inferior pubic rami and right parasymphyseal pubis. Comorbidities include essential HTN, HLD, dementia, depression, tobacco dependence, osteoporosis, fractures of the left superior and inferior pubic rami and right parasymphyseal pubis, hyponatremia, and hyperglycemia. The complexity of the patient's medical management, nursing, and therapy needs require an inpatient rehab hospital stay with a physician-led interdisciplinary team approach. The patient?s needs will be best met in an intensive program vs. at a lower level of care. The patient requires physician services for medical oversight, current problem list in setting of present comorbidities, and pain management. She will be followed at least three times a week by the rehabilitation physician. Orthopedics may see the patient at the frequency of their discretion. Labs will be drawn to monitor blood counts and electrolytes periodically. The patient requires nursing services for DVT prophylactics, infection protection, medication management and education, pressure relief, and wound care. Deficits include:ADLs, Balance, Endurance, Family Training/Education, Mobility, Pain Management, ROM, Safety, Strength, and Transfers. Bridal [employer] Management/Case Management for: Discharge Planning and Patient/Family Counseling Physical Therapy: 5 days per week for 75 minutes. Treatments may include: Therapeutic Exercise, Gait Training, Neuromuscular Re-education, Transfer Training, Community Reintegration, Bed Mobility, Patient/Family Education, Wheelchair Mobility Group Therapy/Concurrent Therapy Rationales: -Improve attention span during functional activities in a distracted environment. -Enhance problem solving and/or adequate judgment skills during functional activities in a distracted environment. -Promote increased safety awareness in a distracted environment to reduce fall risk with functional tasks, transfers, and ambulation to allow a more safe, self-sufficient return to the home environment. -Improve dynamic balance skills to promote safety and independence with functional activities in a distracted environment for maximum gain. Occupational Therapy: 5 days per week for 75 minutes. Treatments may include: Therapeutic Exercise, Therapeutic Activity, Cognitive Training, Self-Care Transfer Training, Community Reintegration, Home Management, Patient/Family Education, Wheelchair Mobility Training, Energy Conservation Training Group Therapy/Concurrent Therapy Rationales: -Allow therapist to observe and teach generalization and carry-over of skills learned in individual therapy. -Enhance problem solving and sequencing skills during therapeutic activities in a distracted environment. -Promote increased safety awareness in a realistic setting to reduce fall risk with functional tasks due to visual and verbal distractions. -Increase functional level with ADLs, ADL transfers and use of adaptive equipment through therapeutic activities with others while promoting safety to allow a more safe, self-sufficient return home. Speech Therapy: 5 days per week for 30 minutes. Treatments may include: Dysphasia Therapy, Speech/Language/Communication Therapy, Cognitive Training, Patient/Family Education Group Therapy/Concurrent Therapy - Rationale: -Allow therapist to observe and teach generalization and carry-over of skills learned in individual therapy. -Improve comprehension skills with complex or abstract ideas through discussion in a realistic setting. -Enhance problem solving skills with complex issues during activities in a distracted environment. -Promote increased memory skills and concentration in a distracted environment for a safe transition home. -Improve attention and focus with language/communication skills in a realistic and supporti
[2021-02-19 20:00] VITALS: PULSE 85; RESP 18; O2SAT 97
[2021-02-19 21:29] VITALS: BP 104/59; PULSE 85; RESP 18; TEMP 37.9; O2SAT 97
[2021-02-20] MEDS: HYDROcodone/acetaminophen (*CRX) 5-325 MG TABLET 2 TAB PO (00:19)
[2021-02-20 05:08] VITALS: BP 110/64; PULSE 58; RESP 18; TEMP 36.5; O2SAT 95
[2021-02-20] MEDS: traMADol HCL (*CRX) 50 MG TABLET PO ×4 (06:36→21:03)
[2021-02-20 08:00] VITALS: PULSE 65; RESP 18; O2SAT 95
[2021-02-20] MEDS: amLODIPine BESYLATE 5 MG TABLET 10 MG PO (09:43)
[2021-02-20] MEDS: VENLAFAXINE HCL XR 75 MG CAP.ER.24H 150 MG PO (09:43)
[2021-02-20] MEDS: ROSUVASTATIN 10 MG TABLET PO (09:43)
[2021-02-20] MEDS: RIVAROXABAN 10 MG TABLET PO (09:43)
[2021-02-20] MEDS: NICOTINE (*PBKC) 14 MG PATCH 1 PATCH TRANSDERM (09:44)
[2021-02-20] MEDS: DOCUSATE SODIUM 100 MG CAPSULE PO ×2 (09:46→21:02)
--- NOTE | 2021-02-20 09:47 | WPDNEURORHBP ---
Subjective Date/time seen: 02/20/21 09:47 Interval history: The patient's primary rehab impairment category is orthopedic lower extremity fracture The etiologic diagnosis is fractures of the left superior and inferior pubic rami and right parasymphyseal pubis The patient is a 60-year-old female with past medical history of smoker, chronic hypertension, dementia, hyperlipidemia, depression and osteoporosis. The patient presented [facility] on 02/15/2021 after suffering a fall in her bathroom around 4:30 p.m. Workup: hip pelvis x-ray revealed fractures of the left superior inferior pubic rami and right parasymphyseal pubis. Head CT showed mild nonspecific cerebral white matter disease, which is likely representing chronic small vessel ischemic disease. Cervical spine CT showed severe cervical spondylosis. Chest x-ray revealed emphysema. . Lab work showed hyponatremia and hyperglycemia. Hospital course on 02/16/2021 orthopedics was consulted and recommended weight-bearing as tolerated with a walker. On 02/16/2021 the patient developed nausea and vomiting. A KUB was ordered which revealed moderate to large amount of colonic stool and gas. Patient has now had numerous bowel movements since. Pain management has been using Tylenol [place] and IV morphine. The patient has SCDs in place for DVT prophylaxis and Xarelto has been added. patient was transferred to the acute rehab unit on 02/18/2021. Sister explained that patient has cognitive deficitsin executive functioning, and memory> Patient can confabulate information according to sister. [facility] Sister related that in 2015 patient fell and broke her arm and patient began to rely on pain meds Patient was seen during physical therapy propelling her wheelchair. Patient voiced no complaints of pain during this session. P Review of Systems Review of Systems: All systems reviewed & are unremarkable except as noted in HPI and below Functional Status Ambulation Ability Ability to Ambulate 10 Feet: Moderate Assistance X 1 Ambulation Assistive Devices: Walker, Wheeled Exam Narrative: Exam Narrative: Patient is seen during physical therapy. Patient is seen propelling her wheelchair and requiring Min verbal cues. Patient is seen sitting properly in the wheelchair and not favoring the left hip at this time. Patient is, and alert. Patient does lack insight into her deficits. Heart rate and rhythm is regular. Lungs are clear. BUE are 4/5 Endurance is good Objective Data Vital Signs Vital Signs: Vital Signs - 24 hr 02/19/21 14:00 02/19/21 20:00 02/19/21 21:29 Temperature 36.7 C 37.9 C H Pulse Rate 79 85 85 Respiratory Rate 20 18 18 Blood Pressure 127/56 L 104/59 L Pulse Oximetry 97 97 97 02/20/21 05:08 Temperature 36.5 C Pulse Rate 58 L Respiratory Rate 18 Blood Pressure 110/64 Pulse Oximetry 95 Intake/Output Intake/Output: Intake & Output 02/17/21 02/18/21 02/19/21 02/20/21 23:59 23:59 23:59 23:59 Intake Total 240 680 240 Balance 240 680 240 Meds/Results Medications: Active Medications Generic Name Dose Route Start Last Admin Trade Name Freq PRN Reason Stop Dose Admin Acetaminophen 650 mg 02/18/21 17:34 Acetaminophen 325 Mg Tablet PO Q4H PRN Pain 1-3, Fever Hydrocodone Bitart/Acetaminophen 1 tab 02/18/21 17:34 02/19/21 16:23 Hydrocodone/Acetaminophen (*Crx) 5-325 Mg Tablet PO 1 tab Q4-6H PRN Administration pain RATED 4-5 Hydrocodone Bitart/Acetaminophen 2 tab 02/18/21 17:49 02/20/21 00:19 Hydrocodone/Acetaminophen (*Crx) 5-325 Mg Tablet PO 2 tab Q4-6H PRN Administration pain 6 OR GREATER Alendronate Sodium 70 mg 02/22/21 06:30 Alendronate Sodium 70 Mg Tablet PO Sa@0630 TODD Amlodipine Besylate 10 mg 02/19/21 09:00 02/20/21 09:43 Amlodipine Besylate 5 Mg Tablet PO 10 mg DAILY TODD Administration Docusate [place]
[2021-02-20] MEDS: polyethylene glycoL 3350 17 GM POWD.PACK PO (11:23)
[2021-02-20 14:00] VITALS: BP 115/65; PULSE 77; RESP 20; TEMP 37.1; O2SAT 97
[2021-02-20] MEDS: HYDROcodone/acetaminophen (*CRX) 5-325 MG TABLET 1 TAB PO ×2 (15:14→19:47)
[2021-02-20 20:00] VITALS: PULSE 84; RESP 16; O2SAT 95
[2021-02-20] MEDS: BACLOFEN 5 MG TABLET PO (21:02)
[2021-02-20 21:59] VITALS: BP 113/63; PULSE 84; RESP 16; TEMP 36.7; O2SAT 95
[2021-02-21] MEDS: HYDROcodone/acetaminophen (*CRX) 5-325 MG TABLET 2 TAB PO (00:43)
[2021-02-21 06:00] VITALS: BP 118/64; PULSE 72; RESP 16; TEMP 35.8; O2SAT 91
[2021-02-21] MEDS: BACLOFEN 5 MG TABLET PO ×3 (06:18→20:19)
[2021-02-21] MEDS: traMADol HCL (*CRX) 50 MG TABLET PO ×3 (07:45→20:19)
[2021-02-21 08:00] VITALS: PULSE 72; RESP 16; O2SAT 91
[2021-02-21] MEDS: VENLAFAXINE HCL XR 75 MG CAP.ER.24H 150 MG PO (08:24)
[2021-02-21] MEDS: NICOTINE (*PBKC) 14 MG PATCH 1 PATCH TRANSDERM (08:25)
[2021-02-21] MEDS: ROSUVASTATIN 10 MG TABLET PO (08:25)
[2021-02-21] MEDS: polyethylene glycoL 3350 17 GM POWD.PACK PO (08:25)
[2021-02-21] MEDS: amLODIPine BESYLATE 5 MG TABLET 10 MG PO (08:27)
[2021-02-21] MEDS: RIVAROXABAN 10 MG TABLET PO (08:28)
--- NOTE | 2021-02-21 11:56 | WPDNEURORHBP ---
Subjective Date/time seen: 02/21/21 11:56 Interval history: The patient's primary rehab impairment category is orthopedic lower extremity fracture The etiologic diagnosis is fractures of the left superior and inferior pubic rami and right parasymphyseal pubis The patient is a 60-year-old female with past medical history of smoker, chronic hypertension, dementia, hyperlipidemia, depression and osteoporosis. The patient presented [facility] on 02/15/2021 after suffering a fall in her bathroom around 4:30 p.m. Workup: hip pelvis x-ray revealed fractures of the left superior inferior pubic rami and right parasymphyseal pubis. Head CT showed mild nonspecific cerebral white matter disease, which is likely representing chronic small vessel ischemic disease. Cervical spine CT showed severe cervical spondylosis. Chest x-ray revealed emphysema. . Lab work showed hyponatremia and hyperglycemia. Hospital course on 02/16/2021 orthopedics was consulted and recommended weight-bearing as tolerated with a walker. On 02/16/2021 the patient developed nausea and vomiting. A KUB was ordered which revealed moderate to large amount of colonic stool and gas. Patient has now had numerous bowel movements since. Pain management has been using Tylenol [place] and IV morphine. The patient has SCDs in place for DVT prophylaxis and Xarelto has been added. patient was transferred to the acute rehab unit on 02/18/2021. Sister explained that patient has cognitive deficitsin executive functioning, and memory> Patient can confabulate information according to sister. [facility] Sister related that in 2015 patient fell and broke her arm and patient began to rely on pain meds Patient less anxious. Pain is better Review of Systems Review of Systems: All systems reviewed & are unremarkable except as noted in HPI and below Functional Status Ambulation Ability Ability to Ambulate 10 Feet: Moderate Assistance X 1 Ambulation Assistive Devices: Walker, Wheeled Exam Narrative: Exam Narrative: Patient is seen during physical therapy. Patient is seen propelling her wheelchair and requiring Min verbal cues. Patient is seen sitting properly in the wheelchair and not favoring the left hip at this time. Patient is and alert. Patient does lack insight into her deficits. Heart rate and rhythm is regular. Lungs are clear. BUE are 4/5 Endurance is good. Gait is mod assist. Objective Data Vital Signs Vital Signs: Vital Signs - 24 hr 02/20/21 14:00 02/20/21 20:00 02/20/21 21:59 Temperature 37.1 C 36.7 C Pulse Rate 77 84 84 Respiratory Rate 20 16 16 Blood Pressure 115/65 113/63 Pulse Oximetry 97 95 95 02/21/21 06:00 Temperature 35.8 C L Pulse Rate 72 Respiratory Rate 16 Blood Pressure 118/64 Pulse Oximetry 91 Intake/Output Intake/Output: Intake & Output 02/18/21 02/19/21 02/20/21 02/21/21 23:59 23:59 23:59 23:59 Intake Total 240 680 720 240 Balance 240 680 720 240 Meds/Results Medications: Active Medications Generic Name Dose Route Start Last Admin Trade Name Freq PRN Reason Stop Dose Admin Acetaminophen 650 mg 02/18/21 17:34 Acetaminophen 325 Mg Tablet PO Q4H PRN Pain 1-3, Fever Hydrocodone Bitart/Acetaminophen 1 tab 02/18/21 17:34 02/20/21 19:47 Hydrocodone/Acetaminophen (*Crx) 5-325 Mg Tablet PO 1 tab Q4-6H PRN Administration pain RATED 4-5 Hydrocodone Bitart/Acetaminophen 2 tab 02/18/21 17:49 02/21/21 00:43 Hydrocodone/Acetaminophen (*Crx) 5-325 Mg Tablet PO 2 tab Q4-6H PRN Administration pain 6 OR GREATER Alendronate Sodium 70 mg 02/22/21 06:30 Alendronate Sodium 70 Mg Tablet PO Sa@0630 TODD Amlodipine Besylate 10 mg 02/19/21 09:00 02/21/21 08:27 Amlodipine Besylate 5 Mg Tablet PO 10 mg DAILY TODD Administration Baclofen 5 mg 02/20/21 22:00 02/21/21 06:18 Baclofen 5 Mg Tablet PO 5 mg Q
[2021-02-21] MEDS: DOCUSATE SODIUM 100 MG CAPSULE PO ×2 (12:00→20:19)
[2021-02-21 14:00] VITALS: BP 104/55; PULSE 95; RESP 20; TEMP 36.9; O2SAT 98
[2021-02-21] MEDS: HYDROcodone/acetaminophen (*CRX) 5-325 MG TABLET 1 TAB PO (17:03)
[2021-02-21 22:00] VITALS: BP 149/74; PULSE 79; RESP 18; TEMP 36.3; O2SAT 93
[2021-02-22] MEDS: HYDROcodone/acetaminophen (*CRX) 5-325 MG TABLET 1 TAB PO (02:21)
[2021-02-22 04:53] VITALS: BP 142/66; PULSE 76; RESP 20; TEMP 36.2; O2SAT 94
[2021-02-22] MEDS: ALENDRONATE SODIUM 70 MG TABLET PO (07:03)
[2021-02-22] MEDS: traMADol HCL (*CRX) 50 MG TABLET PO ×3 (07:04→20:05)
[2021-02-22] MEDS: BACLOFEN 5 MG TABLET PO ×3 (07:04→22:41)
[2021-02-22] MEDS: NICOTINE (*PBKC) 14 MG PATCH 1 PATCH TRANSDERM (09:21)
[2021-02-22] MEDS: RIVAROXABAN 10 MG TABLET PO (09:22)
[2021-02-22] MEDS: VENLAFAXINE HCL XR 75 MG CAP.ER.24H 150 MG PO (09:22)
[2021-02-22] MEDS: amLODIPine BESYLATE 5 MG TABLET 10 MG PO (09:22)
[2021-02-22] MEDS: ROSUVASTATIN 10 MG TABLET PO (09:22)
[2021-02-22] MEDS: DOCUSATE SODIUM 100 MG CAPSULE PO ×2 (09:23→22:41)
[2021-02-22] MEDS: polyethylene glycoL 3350 17 GM POWD.PACK PO (09:23)
--- NOTE | 2021-02-22 09:58 | WPDNEURORHBP ---
Subjective Date/time seen: 02/22/21 09:58 Interval history: The patient's primary rehab impairment category is orthopedic lower extremity fracture The etiologic diagnosis is fractures of the left superior and inferior pubic rami and right parasymphyseal pubis The patient is a 60-year-old female with past medical history of smoker, chronic hypertension, dementia, hyperlipidemia, depression and osteoporosis. The patient presented [facility] on 02/15/2021 after suffering a fall in her bathroom around 4:30 p.m. Workup: hip pelvis x-ray revealed fractures of the left superior inferior pubic rami and right parasymphyseal pubis. Head CT showed mild nonspecific cerebral white matter disease, which is likely representing chronic small vessel ischemic disease. Cervical spine CT showed severe cervical spondylosis. Chest x-ray revealed emphysema. . Lab work showed hyponatremia and hyperglycemia. Hospital course on 02/16/2021 orthopedics was consulted and recommended weight-bearing as tolerated with a walker. On 02/16/2021 the patient developed nausea and vomiting. A KUB was ordered which revealed moderate to large amount of colonic stool and gas. Patient has now had numerous bowel movements since. Pain management has been using Tylenol [place] and IV morphine. The patient has SCDs in place for DVT prophylaxis and Xarelto has been added. Patient was transferred to the acute rehab unit on 02/18/2021. Sister explained that patient has cognitive deficits in executive functioning, and memory deficits Patient can confabulate information according to sister. [facility] Sister related that in 2015 patient fell and broke her arm and patient began to rely on pain meds Patient less anxious. Pain is better. Appetite is good. Patient needs reminders for safety Review of Systems Review of Systems: All systems reviewed & are unremarkable except as noted in HPI and below Functional Status Ambulation Ability Ability to Ambulate 10 Feet: Moderate Assistance X 1 Ambulation Assistive Devices: Walker, Wheeled Exam Narrative: Exam Narrative: Patient is seen after breakfast. Patient appears, and in no acute distress. Overall demeanor is calm. Patient is and alert. Patient does lack insight into her deficits. Heart rate and rhythm is regular. Lungs are clear. BUE are 4/5 Endurance is good. Gait is mod assist. Objective Data Vital Signs Vital Signs: Vital Signs - 24 hr 02/21/21 14:00 02/21/21 22:00 02/22/21 04:53 Temperature 36.9 C 36.3 C L 36.2 C L Pulse Rate 95 79 76 Respiratory Rate 20 18 20 Blood Pressure 104/55 L 149/74 H 142/66 H Pulse Oximetry 98 93 94 Intake/Output Intake/Output: Intake & Output 02/19/21 02/20/21 02/21/21 02/22/21 23:59 23:59 23:59 23:59 Intake Total 680 720 720 240 Balance 680 720 720 240 Meds/Results Medications: Active Medications Generic Name Dose Route Start Last Admin Trade Name Freq PRN Reason Stop Dose Admin Acetaminophen 650 mg 02/18/21 17:34 Acetaminophen 325 Mg Tablet PO Q4H PRN Pain 1-3, Fever Hydrocodone Bitart/Acetaminophen 1 tab 02/18/21 17:34 02/22/21 02:21 Hydrocodone/Acetaminophen (*Crx) 5-325 Mg Tablet PO 1 tab Q4-6H PRN Administration pain RATED 4-5 Hydrocodone Bitart/Acetaminophen 2 tab 02/18/21 17:49 02/21/21 00:43 Hydrocodone/Acetaminophen (*Crx) 5-325 Mg Tablet PO 2 tab Q4-6H PRN Administration pain 6 OR GREATER Alendronate Sodium 70 mg 02/22/21 06:30 02/22/21 07:03 Alendronate Sodium 70 Mg Tablet PO 70 mg Sa@0630 TODD Administration Amlodipine Besylate 10 mg 02/19/21 09:00 02/22/21 09:22 Amlodipine Besylate 5 Mg Tablet PO 10 mg DAILY TODD Administration Baclofen 5 mg 02/20/21 22:00 02/22/21 07:04 Baclofen 5 Mg Tablet PO 5 mg Q8HR TODD Administration Docusate Sodium 100 mg 02/18/21 21:00 02/22/21 09:23 Docusate Sodium 100 Mg Ca
[2021-02-22 14:00] VITALS: BP 113/60; PULSE 68; RESP 20; TEMP 36; O2SAT 99
[2021-02-22 19:58] VITALS: BP 134/66; PULSE 92; RESP 20; TEMP 37.1; O2SAT 94
[2021-02-23 05:29] VITALS: BP 129/74; PULSE 84; RESP 16; TEMP 36.5; O2SAT 96
[2021-02-23] MEDS: BACLOFEN 5 MG TABLET PO ×3 (06:43→21:15)
[2021-02-23] MEDS: traMADol HCL (*CRX) 50 MG TABLET PO ×3 (07:31→21:14)
[2021-02-23 08:00] VITALS: PULSE 84; RESP 16; O2SAT 96
[2021-02-23] MEDS: NICOTINE (*PBKC) 14 MG PATCH 1 PATCH TRANSDERM (08:32)
[2021-02-23] MEDS: ROSUVASTATIN 10 MG TABLET PO (08:33)
[2021-02-23] MEDS: VENLAFAXINE HCL XR 75 MG CAP.ER.24H 150 MG PO (08:33)
[2021-02-23] MEDS: RIVAROXABAN 10 MG TABLET PO (08:33)
[2021-02-23] MEDS: amLODIPine BESYLATE 5 MG TABLET 10 MG PO (08:33)
[2021-02-23] MEDS: polyethylene glycoL 3350 17 GM POWD.PACK PO (08:33)
[2021-02-23] MEDS: DOCUSATE SODIUM 100 MG CAPSULE PO ×2 (08:36→21:14)
--- NOTE | 2021-02-23 10:05 | WPDNEURORHBP ---
Subjective Date/time seen: 02/23/21 10:05 Interval history: The patient's primary rehab impairment category is orthopedic lower extremity fracture The etiologic diagnosis is fractures of the left superior and inferior pubic rami and right parasymphyseal pubis The patient is a 60-year-old female with past medical history of smoker, chronic hypertension, dementia, hyperlipidemia, depression and osteoporosis. The patient presented [facility] on 02/15/2021 after suffering a fall in her bathroom around 4:30 p.m. Workup: hip pelvis x-ray revealed fractures of the left superior inferior pubic rami and right parasymphyseal pubis. Head CT showed mild nonspecific cerebral white matter disease, which is likely representing chronic small vessel ischemic disease. Cervical spine CT showed severe cervical spondylosis. Chest x-ray revealed emphysema. . Lab work showed hyponatremia and hyperglycemia. Hospital course on 02/16/2021 orthopedics was consulted and recommended weight-bearing as tolerated with a walker. On 02/16/2021 the patient developed nausea and vomiting. A KUB was ordered which revealed moderate to large amount of colonic stool and gas. Patient has now had numerous bowel movements since. Pain management has been using Tylenol [place] and IV morphine. The patient has SCDs in place for DVT prophylaxis and Xarelto has been added. Patient was transferred to the acute rehab unit on 02/18/2021. Sister explained that patient has cognitive deficits in executive functioning, and memory deficits Patient can confabulate information according to sister. [facility] Sister related that in 2015 patient fell and broke her arm and patient began to rely on pain meds Patient less anxious but grimaces during weightbearing thru LLE. Patient complains of 8/10 pain but looks comfortable. Review of Systems Review of Systems: All systems reviewed & are unremarkable except as noted in HPI and below Functional Status Ambulation Ability Ability to Ambulate 10 Feet: Minimum Assistance X 1 Ambulation Assistive Devices: Walker, Wheeled Exam Narrative: Exam Narrative: Patient seen during transfer to [facility]. Patient is and alert. Patient does lack insight into her deficits. Heart rate and rhythm is regular. Lungs are clear. BUE are 4/5 Endurance is good. Patient has limited weightbearing thru LLE. Objective Data Vital Signs Vital Signs: Vital Signs - 24 hr 02/22/21 14:00 02/22/21 19:58 02/23/21 05:29 Temperature 36.0 C L 37.1 C 36.5 C Pulse Rate 68 92 84 Respiratory Rate 20 20 16 Blood Pressure 113/60 134/66 129/74 Pulse Oximetry 99 94 96 Intake/Output Intake/Output: Intake & Output 02/20/21 02/21/21 02/22/21 02/23/21 23:59 23:59 23:59 23:59 Intake Total 720 720 720 240 Balance 720 720 720 240 Meds/Results Medications: Active Medications Generic Name Dose Route Start Last Admin Trade Name Freq PRN Reason Stop Dose Admin Acetaminophen 650 mg 02/18/21 17:34 Acetaminophen 325 Mg Tablet PO Q4H PRN Pain 1-3, Fever Hydrocodone Bitart/Acetaminophen 1 tab 02/18/21 17:34 02/22/21 02:21 Hydrocodone/Acetaminophen (*Crx) 5-325 Mg Tablet PO 1 tab Q4-6H PRN Administration pain RATED 4-5 Hydrocodone Bitart/Acetaminophen 2 tab 02/18/21 17:49 02/21/21 00:43 Hydrocodone/Acetaminophen (*Crx) 5-325 Mg Tablet PO 2 tab Q4-6H PRN Administration pain 6 OR GREATER Alendronate Sodium 70 mg 02/22/21 06:30 02/22/21 07:03 Alendronate Sodium 70 Mg Tablet PO 70 mg Sa@0630 TODD Administration Amlodipine Besylate 10 mg 02/19/21 09:00 02/23/21 08:33 Amlodipine Besylate 5 Mg Tablet PO 10 mg DAILY TODD Administration Baclofen 5 mg 02/20/21 22:00 02/23/21 06:43 Baclofen 5 Mg Tablet PO 5 mg Q8HR TODD Administration Docusate Sodium 100 mg 02/18/21 21:00 02/23/21 08:36 Docusate Sodium 100 Mg Capsule PO 100 mg
[2021-02-23 14:00] VITALS: BP 107/72; PULSE 88; RESP 20; TEMP 36.6; O2SAT 99
[2021-02-23 20:20] VITALS: PULSE 84; RESP 16; O2SAT 99
[2021-02-23 22:00] VITALS: BP 121/72; PULSE 84; RESP 16; TEMP 36.6; O2SAT 99
[2021-02-24] MEDS: BACLOFEN 5 MG TABLET PO ×3 (05:53→21:36)
[2021-02-24] MEDS: traMADol HCL (*CRX) 50 MG TABLET PO (05:56)
[2021-02-24 05:57] VITALS: BP 116/67; PULSE 72; RESP 18; TEMP 35.9; O2SAT 94
[2021-02-24] MEDS: NICOTINE (*PBKC) 14 MG PATCH 1 PATCH TRANSDERM (09:10)
[2021-02-24] MEDS: amLODIPine BESYLATE 5 MG TABLET 10 MG PO (09:10)
[2021-02-24] MEDS: polyethylene glycoL 3350 17 GM POWD.PACK PO (09:11)
[2021-02-24] MEDS: ROSUVASTATIN 10 MG TABLET PO (09:11)
[2021-02-24] MEDS: RIVAROXABAN 10 MG TABLET PO (09:11)
[2021-02-24] MEDS: VENLAFAXINE HCL XR 75 MG CAP.ER.24H 150 MG PO (09:11)
[2021-02-24] MEDS: HYDROcodone/acetaminophen (*CRX) 5-325 MG TABLET 2 TAB PO (09:13)
--- NOTE | 2021-02-24 10:16 | WPDNEURORHBP ---
Subjective Date/time seen: 02/24/21 10:16 Interval history: The patient's primary rehab impairment category is orthopedic lower extremity fracture The etiologic diagnosis is fractures of the left superior and inferior pubic rami and right parasymphyseal pubis The patient is a 60-year-old female with past medical history of smoker, chronic hypertension, dementia, hyperlipidemia, depression and osteoporosis. The patient presented [facility] on 02/15/2021 after suffering a fall in her bathroom around 4:30 p.m. Workup: hip pelvis x-ray revealed fractures of the left superior inferior pubic rami and right parasymphyseal pubis. Head CT showed mild nonspecific cerebral white matter disease, which is likely representing chronic small vessel ischemic disease. Cervical spine CT showed severe cervical spondylosis. Chest x-ray revealed emphysema. . Lab work showed hyponatremia and hyperglycemia. Hospital course on 02/16/2021 orthopedics was consulted and recommended weight-bearing as tolerated with a walker. On 02/16/2021 the patient developed nausea and vomiting. A KUB was ordered which revealed moderate to large amount of colonic stool and gas. Patient has now had numerous bowel movements since. Pain management has been using Tylenol [place] and IV morphine. The patient has SCDs in place for DVT prophylaxis and Xarelto has been added. Patient was transferred to the acute rehab unit on 02/18/2021. Sister explained that patient has cognitive deficits in executive functioning, and memory deficits Patient can confabulate information according to sister. [facility] Sister related that in 2015 patient fell and broke her arm and patient began to rely on pain meds Patient performing well with therapy. Patient believes that pain meds can be decreased. Patient is drinking large quantities of water resulting in numerous transfers to Bathroom. Review of Systems Review of Systems: All systems reviewed & are unremarkable except as noted in HPI and below Functional Status Ambulation Ability Ability to Ambulate 10 Feet: Minimum Assistance X 1 Ambulation Assistive Devices: Walker, Wheeled Exam Narrative: Exam Narrative: Patient seen during transfer to [facility]. Patient is and alert. Patient does lack insight into her deficits. Heart rate and rhythm is regular. Lungs are clear. BUE are 4/5 Endurance is good. Patient has limited weightbearing thru LLE. Endurance is better Objective Data Vital Signs Vital Signs: Vital Signs - 24 hr 02/23/21 14:00 02/23/21 20:20 02/23/21 22:00 Temperature 36.6 C 36.6 C Pulse Rate 88 84 84 Respiratory Rate 20 16 16 Blood Pressure 107/72 121/72 Pulse Oximetry 99 99 99 02/24/21 05:57 Temperature 35.9 C L Pulse Rate 72 Respiratory Rate 18 Blood Pressure 116/67 Pulse Oximetry 94 Intake/Output Intake/Output: Intake & Output 02/21/21 02/22/21 02/23/21 02/24/21 23:59 23:59 23:59 23:59 Intake Total 720 720 960 Balance 720 720 960 Meds/Results Medications: Active Medications Generic Name Dose Route Start Last Admin Trade Name Freq PRN Reason Stop Dose Admin Acetaminophen 650 mg 02/18/21 17:34 Acetaminophen 325 Mg Tablet PO Q4H PRN Pain 1-3, Fever Hydrocodone Bitart/Acetaminophen 1 tab 02/18/21 17:34 02/22/21 02:21 Hydrocodone/Acetaminophen (*Crx) 5-325 Mg Tablet PO 1 tab Q4-6H PRN Administration pain RATED 4-5 Hydrocodone Bitart/Acetaminophen 2 tab 02/18/21 17:49 02/24/21 09:13 Hydrocodone/Acetaminophen (*Crx) 5-325 Mg Tablet PO 2 tab Q4-6H PRN Administration pain 6 OR GREATER Alendronate Sodium 70 mg 02/22/21 06:30 02/22/21 07:03 Alendronate Sodium 70 Mg Tablet PO 70 mg Sa@0630 TODD Administration Amlodipine Besylate 10 mg 02/19/21 09:00 02/24/21 09:10 Amlodipine Besylate 5 Mg Tablet PO 10 mg DAILY TODD Administration Baclofen 5 mg 02/20/21 22:00 02/13
[2021-02-24 10:31] LABS: Add Urine Microscopic? YES; Appearance Urine Cloudy (Clear); Bilirubin Urine Negative (Negative); Blood Urine Negative (Negative); Color Urine Yellow (Yellow); Glucose Urine UA Negative (Negative); Ketones Urine Negative (Negative); Leukocyte Esterase Ur Negative LEU/UL (NEGATIVE); Nitrate Urine Negative (Negative); Protein Urine Negative (Negative); Specific Grav Ur 1.018 (1.001-1.035)
[2021-02-24 10:58] LABS: Squamous Epithelial Cell Urine Rare /hpf (Few); WBC Urine 0-3 /hpf (0-3)
--- NOTE | 2021-02-24 11:01 | PC.NURSE ---
Post void residuals done at 8:30 and 9:30, both being 15 mls.
[2021-02-24 11:06] LABS: Basophils Percent Auto 0.6 % (0.2-1.2); Eosinophils Absolute Auto 0.2 K/mm3 (0-0.3); Eosinophils Percent Auto 2.3 % (0-4.4); Hematocrit 35.5 % (37.0-47.0); Hemoglobin 11.7 g/dL (12.0-15.0); Immature Granulocyte Absolute 0.03 K/mm3 (0.00-0.031); Immature Granulocyte Percent A 0.5 % (0-0.5); Lymphocytes Absolute Auto 1.29 K/mm3 (0.9-3.2); Lymphocytes Percent Auto 19.7 % (18.3-44.2); Mean Corpuscular Hemoglobin 30.2 pg (26-34); Mean Corpuscular Volume 91.5 fl (80-100); Mean Platelet Volume 10.2 fl (7.4-10.4); Monocytes Absolute Auto 0.8 K/mm3 (0.1-0.6); Monocytes Percent Auto 11.9 % (2.6-8.5); Neutrophils Absolute Auto 4.3 K/mm3 (1.3-6.7); Platelet Count Result 377 k/mm3 (150-375); Red Blood Count 3.88 M/mm3 (4.2-5.4); Red Cell Distribution Width 13.8 % (11.5-14.5); White Blood Count 6.6 K/mm3 (4.5-10.0)
[2021-02-24 11:24] LABS: Alanine Aminotransferase 18 U/L (4-35); Albumin Level 3.8 g/dL (3.5-5.1); Alkaline Phosphatase 73 U/L (38-126); Anion Gap 4 mmol/L (8-16); Aspartate Amino Transferase 26 U/L (14-36); Bilirubin,Total 0.4 mg/dL (0.2-1.3); Blood Urea Nitrogen 15 mg/dL (7-17); Calcium 9.1 mg/dL (8.4-10.2); Carbon Dioxide 31 mmol/L (22-30); Chloride 101 mmol/L (98-107); Estimated CRCL calculation 83 ml/min; Estimated Glomerular Filt Rate > 60; Glucose 115 mg/dL (65-105); Potassium 4.3 mmol/L (3.4-5.0); Sodium 136 mmol/L (137-145)
[2021-02-24] MEDS: traMADol HCL (*CRX) 25 MG TABLET PO ×2 (12:11→21:35)
--- NOTE | 2021-02-24 13:06 | PCDIET ---
Nutrition Follow-Up Complete: Nutrition Diagnosis: Involuntary weight loss related to decreased appetite as evidenced by patient statements. Nutrition Goal: Patient to consume at least 50% of meals and supplements Goal met. Average intake since 02/20/21 has been 67% of recorded meals on regular diet with Ensure Enlive BID. Patient reports liking Ensure Enlive and would like to continue on it. Also reports appetite has improved and likes the food. Last recorded weight is 62 kg. Recommend obtaining new weight. Bowel Motility: +BM today. Labs Reviewed: No new labs available. Meds Noted: [place], Fosamax, Norvasc, Colace, Miralax, Xarelto, Crestor Additional Notes: No documented skin breakdown. Will continue to monitor with same goal. Nutrition Monitoring and Evaluation: Follow up in 7 days.
[2021-02-24 14:00] VITALS: BP 115/63; PULSE 64; RESP 20; TEMP 36.1; O2SAT 100
[2021-02-24] MEDS: DOCUSATE SODIUM 100 MG CAPSULE PO (21:35)
[2021-02-24 21:47] VITALS: BP 129/81; PULSE 76; RESP 16; TEMP 36.4; O2SAT 98
[2021-02-25 06:00] VITALS: BP 127/68; PULSE 75; RESP 16; TEMP 36.2; O2SAT 97
[2021-02-25] MEDS: BACLOFEN 5 MG TABLET PO ×3 (06:06→22:16)
[2021-02-25] MEDS: traMADol HCL (*CRX) 25 MG TABLET PO ×3 (06:54→21:25)
[2021-02-25] MEDS: amLODIPine BESYLATE 5 MG TABLET 10 MG PO (07:57)
[2021-02-25] MEDS: NICOTINE (*PBKC) 14 MG PATCH 1 PATCH TRANSDERM (07:57)
[2021-02-25] MEDS: ROSUVASTATIN 10 MG TABLET PO (07:58)
[2021-02-25] MEDS: VENLAFAXINE HCL XR 75 MG CAP.ER.24H 150 MG PO (07:58)
[2021-02-25] MEDS: RIVAROXABAN 10 MG TABLET PO (07:58)
--- NOTE | 2021-02-25 08:50 | PCPTNOTE ---
Cheri Kumar was evaluated for a 2 wheeled walker on 02/25/2021 by this physical therapist. The 2 wheeled walker will resolve patient's mobility limitations and will be used for ADL's within the home. The patient can safely use the 2 wheeled walker. ?The 2 wheeled walker will resolve the patient?s mobility deficits, including poor endurance, balance deficits, and decreased bilateral lower extremity strength.
[2021-02-25 14:00] VITALS: BP 114/63; PULSE 78; RESP 22; TEMP 36.6; O2SAT 100
--- NOTE | 2021-02-25 14:23 | WPDNEURORHBP ---
Subjective Date/time seen: 02/25/21 14:23 Interval history: The patient's primary rehab impairment category is orthopedic lower extremity fracture The etiologic diagnosis is fractures of the left superior and inferior pubic rami and right parasymphyseal pubis The patient is a 60-year-old female with past medical history of smoker, chronic hypertension, dementia, hyperlipidemia, depression and osteoporosis. The patient presented [facility] on 02/15/2021 after suffering a fall in her bathroom around 4:30 p.m. Workup: hip pelvis x-ray revealed fractures of the left superior inferior pubic rami and right parasymphyseal pubis. Head CT showed mild nonspecific cerebral white matter disease, which is likely representing chronic small vessel ischemic disease. Cervical spine CT showed severe cervical spondylosis. Chest x-ray revealed emphysema. . Lab work showed hyponatremia and hyperglycemia. Hospital course on 02/16/2021 orthopedics was consulted and recommended weight-bearing as tolerated with a walker. On 02/16/2021 the patient developed nausea and vomiting. A KUB was ordered which revealed moderate to large amount of colonic stool and gas. Patient has now had numerous bowel movements since. Pain management had been using Tylenol [place] and IV morphine. The patient has SCDs in place for DVT prophylaxis and Xarelto has been added. Patient was transferred to the acute rehab unit on 02/18/2021. Sister explained that patient has cognitive deficits in executive functioning, and memory deficits Patient can confabulate information according to sister. [facility] Sister related that in 2015 patient fell and broke her arm and patient began to rely on pain meds Patient is in good spirits. Patient is seen during physical therapy. Patient states that pain management is adequate with the decreasing dose of tramadol Review of Systems Review of Systems: All systems reviewed & are unremarkable except as noted in HPI and below Functional Status Ambulation Ability Ability to Ambulate 10 Feet: Contact Guard Ability to Ambulate 50 Feet With 2 Turns: Contact Guard Ambulation Assistive Devices: Walker, Wheeled Exam Narrative: Exam Narrative: Patient seen during gait. Patient is and alert. Patient does lack insight into her deficits. Heart rate and rhythm is regular. Lungs are clear. BUE are 4/5 Endurance is good. Patient is weightbearing better thru LLE. Endurance is better Objective Data Vital Signs Vital Signs: Vital Signs - 24 hr 02/24/21 21:47 02/25/21 06:00 Temperature 36.4 C L 36.2 C L Pulse Rate 76 75 Respiratory Rate 16 16 Blood Pressure 129/81 127/68 Pulse Oximetry 98 97 Intake/Output Intake/Output: Intake & Output 02/22/21 02/23/21 02/24/21 02/25/21 23:59 23:59 23:59 23:59 Intake Total 720 960 720 240 Balance 720 960 720 240 Meds/Results Medications: Active Medications Generic Name Dose Route Start Last Admin Trade Name Freq PRN Reason Stop Dose Admin Acetaminophen 650 mg 02/18/21 17:34 Acetaminophen 325 Mg Tablet PO Q4H PRN Pain 1-3, Fever Hydrocodone Bitart/Acetaminophen 1 tab 02/18/21 17:34 02/22/21 02:21 Hydrocodone/Acetaminophen (*Crx) 5-325 Mg Tablet PO 1 tab Q4-6H PRN Administration pain RATED 4-5 Hydrocodone Bitart/Acetaminophen 2 tab 02/18/21 17:49 02/24/21 09:13 Hydrocodone/Acetaminophen (*Crx) 5-325 Mg Tablet PO 2 tab Q4-6H PRN Administration pain 6 OR GREATER Alendronate Sodium 70 mg 02/22/21 06:30 02/22/21 07:03 Alendronate Sodium 70 Mg Tablet PO 70 mg Sa@0630 TODD Administration Amlodipine Besylate 10 mg 02/19/21 09:00 02/25/21 07:57 Amlodipine Besylate 5 Mg Tablet PO 10 mg DAILY TODD Administration Baclofen 5 mg 02/20/21 22:00 02/25/21 06:06 Baclofen 5 Mg Tablet PO 5 mg Q8HR TODD Administration Docusate Sodium 100 mg 02/18/21 21:00
[2021-02-25 21:50] VITALS: BP 126/65; PULSE 84; RESP 16; TEMP 36.3; O2SAT 98
[2021-02-26 06:00] VITALS: BP 136/66; PULSE 69; RESP 16; TEMP 36.7; O2SAT 97
[2021-02-26] MEDS: BACLOFEN 5 MG TABLET PO ×3 (06:13→20:54)
[2021-02-26] MEDS: traMADol HCL (*CRX) 25 MG TABLET PO ×2 (06:53→12:06)
[2021-02-26 08:00] VITALS: PULSE 69; RESP 16; O2SAT 97
--- NOTE | 2021-02-26 09:12 | WPDNEURORHBP ---
Subjective Date/time seen: 02/26/21 09:12 Interval history: The patient's primary rehab impairment category is orthopedic lower extremity fracture The etiologic diagnosis is fractures of the left superior and inferior pubic rami and right parasymphyseal pubis The patient is a 60-year-old female with past medical history of smoker, chronic hypertension, dementia, hyperlipidemia, depression and osteoporosis. The patient presented [facility] on 02/15/2021 after suffering a fall in her bathroom around 4:30 p.m. Workup: hip pelvis x-ray revealed fractures of the left superior inferior pubic rami and right parasymphyseal pubis. Head CT showed mild nonspecific cerebral white matter disease, which is likely representing chronic small vessel ischemic disease. Cervical spine CT showed severe cervical spondylosis. Chest x-ray revealed emphysema. . Lab work showed hyponatremia and hyperglycemia. Hospital course on 02/16/2021 orthopedics was consulted and recommended weight-bearing as tolerated with a walker. On 02/16/2021 the patient developed nausea and vomiting. A KUB was ordered which revealed moderate to large amount of colonic stool and gas. Patient has now had numerous bowel movements since. Pain management had been using Tylenol [place] and IV morphine. The patient has SCDs in place for DVT prophylaxis and Xarelto has been added. Patient was transferred to the acute rehab unit on 02/18/2021. Sister explained that patient has cognitive deficits in executive functioning, and memory deficits Patient can confabulate information according to sister. [facility] Sister related that in 2015 patient fell and broke her arm and patient began to rely on pain meds Patient is seen during OT this morning. Patient states that her pain is controlled. Patient is remaining calm during therapy. This afternoon patient was unable to ambulate due to pain. Will increase Tramadol back to 50 mg Review of Systems Review of Systems: All systems reviewed & are unremarkable except as noted in HPI and below Functional Status Ambulation Ability Ability to Ambulate 10 Feet: Contact Guard Ability to Ambulate 50 Feet With 2 Turns: Contact Guard Ambulation Assistive Devices: Walker, Wheeled Exam Narrative: Exam Narrative: Patient is and alert. Patient does lack insight into her deficits. Heart rate and rhythm is regular. Lungs are clear. BUE are 4/5 Endurance is good. Patient is weightbearing better thru LLE. Endurance is better Objective Data Vital Signs Vital Signs: Vital Signs - 24 hr 02/25/21 14:00 02/25/21 21:50 02/26/21 06:00 Temperature 36.6 C 36.3 C L 36.7 C Pulse Rate 78 84 69 Respiratory Rate 22 H 16 16 Blood Pressure 114/63 126/65 136/66 Pulse Oximetry 100 98 97 Intake/Output Intake/Output: Intake & Output 02/23/21 02/24/21 02/25/21 02/26/21 23:59 23:59 23:59 23:59 Intake Total 866 011 4813 120 Balance 934 095 0504 120 Meds/Results Medications: Active Medications Generic Name Dose Route Start Last Admin Trade Name Freq PRN Reason Stop Dose Admin Acetaminophen 650 mg 02/18/21 17:34 Acetaminophen 325 Mg Tablet PO Q4H PRN Pain 1-3, Fever Hydrocodone Bitart/Acetaminophen 1 tab 02/18/21 17:34 02/22/21 02:21 Hydrocodone/Acetaminophen (*Crx) 5-325 Mg Tablet PO 1 tab Q4-6H PRN Administration pain RATED 4-5 Hydrocodone Bitart/Acetaminophen 2 tab 02/18/21 17:49 02/24/21 09:13 Hydrocodone/Acetaminophen (*Crx) 5-325 Mg Tablet PO 2 tab Q4-6H PRN Administration pain 6 OR GREATER Alendronate Sodium 70 mg 02/22/21 06:30 02/22/21 07:03 Alendronate Sodium 70 Mg Tablet PO 70 mg Sa@0630 TODD Administration Amlodipine Besylate 10 mg 02/19/21 09:00 02/25/21 07:57 Amlodipine Besylate 5 Mg Tablet PO 10 mg DAILY TODD Administration Baclofen 5 mg 02/20/21 22:00 02/26/21 06:13 Baclofen 5 Mg Tablet PO 5 mg
[2021-02-26] MEDS: DOCUSATE SODIUM 100 MG CAPSULE PO ×2 (09:31→20:54)
[2021-02-26] MEDS: amLODIPine BESYLATE 5 MG TABLET 10 MG PO (09:31)
[2021-02-26] MEDS: VENLAFAXINE HCL XR 75 MG CAP.ER.24H 150 MG PO (09:32)
[2021-02-26] MEDS: ROSUVASTATIN 10 MG TABLET PO (09:32)
[2021-02-26] MEDS: polyethylene glycoL 3350 17 GM POWD.PACK PO (09:32)
[2021-02-26] MEDS: NICOTINE (*PBKC) 14 MG PATCH 1 PATCH TRANSDERM (09:32)
[2021-02-26] MEDS: RIVAROXABAN 10 MG TABLET PO (09:32)
[2021-02-26 14:00] VITALS: BP 134/60; PULSE 81; RESP 18; TEMP 36.6; O2SAT 98
[2021-02-26] MEDS: traMADol HCL (*CRX) 50 MG TABLET PO (20:54)
[2021-02-26 21:44] VITALS: BP 122/72; PULSE 80; RESP 16; TEMP 36.9; O2SAT 100
[2021-02-27 06:00] VITALS: BP 138/69; PULSE 77; RESP 16; TEMP 36.3; O2SAT 97
[2021-02-27] MEDS: BACLOFEN 5 MG TABLET PO ×3 (06:24→21:49)
[2021-02-27] MEDS: traMADol HCL (*CRX) 50 MG TABLET PO ×4 (06:24→21:07)
[2021-02-27] MEDS: NICOTINE (*PBKC) 14 MG PATCH 1 PATCH TRANSDERM (08:42)
[2021-02-27] MEDS: ROSUVASTATIN 10 MG TABLET PO (08:42)
[2021-02-27] MEDS: RIVAROXABAN 10 MG TABLET PO (08:42)
[2021-02-27] MEDS: amLODIPine BESYLATE 5 MG TABLET 10 MG PO (08:42)
[2021-02-27] MEDS: VENLAFAXINE HCL XR 75 MG CAP.ER.24H 150 MG PO (08:42)
[2021-02-27] MEDS: DOCUSATE SODIUM 100 MG CAPSULE PO ×2 (08:44→21:07)
--- NOTE | 2021-02-27 08:52 | PC.NURSE ---
pt refused miralax this morning stating she is going to the bathroom and doesn't want it. updated.
[2021-02-27 14:00] VITALS: BP 117/64; PULSE 93; RESP 18; TEMP 36.9; O2SAT 99
--- NOTE | 2021-02-27 15:52 | WPDNEURORHBP ---
Subjective Date/time seen: 02/27/21 15:52 Interval history: The etiologic diagnosis is fractures of the left superior and inferior pubic rami and right parasymphyseal pubis The patient is a 60-year-old female with past medical history of smoker, chronic hypertension, dementia, hyperlipidemia, depression and osteoporosis. The patient presented [facility] on 02/15/2021 after suffering a fall in her bathroom around 4:30 p.m. Workup: hip pelvis x-ray revealed fractures of the left superior inferior pubic rami and right parasymphyseal pubis. Head CT showed mild nonspecific cerebral white matter disease, which is likely representing chronic small vessel ischemic disease. Cervical spine CT showed severe cervical spondylosis. Chest x-ray revealed emphysema. . Lab work showed hyponatremia and hyperglycemia. Hospital course on 02/16/2021 orthopedics was consulted and recommended weight-bearing as tolerated with a walker. On 02/16/2021 the patient developed nausea and vomiting. A KUB was ordered which revealed moderate to large amount of colonic stool and gas. Patient has now had numerous bowel movements since. Pain management had been using Tylenol [place] and IV morphine. The patient has SCDs in place for DVT prophylaxis and Xarelto has been added. Patient was transferred to the acute rehab unit on 02/18/2021. Sister explained that patient has cognitive deficits in executive functioning, and memory deficits Patient can confabulate information according to sister. [facility] Sister related that in 2015 patient fell and broke her arm and patient began to rely on pain meds Patient is seen during PT this morning with sister. Patient was able to ambulate further today with increase of the Tramadol back to 50 mg Review of Systems Review of Systems: All systems reviewed & are unremarkable except as noted in HPI and below Functional Status Ambulation Ability Ability to Ambulate 10 Feet: Standby Assistance Ability to Ambulate 50 Feet With 2 Turns: Standby Assistance Ability to Ambulate 150 Feet: Contact Guard Ambulation Assistive Devices: Walker, Wheeled Exam Narrative: Exam Narrative: Patient is and alert. Patient does lack insight into her deficits. Heart rate and rhythm is regular. Lungs are clear. BUE are 4/5 Endurance is good. Patient is weightbearing better thru LLE. Endurance is better. Patient tends to sit with left leg externally rotated and crossed. Objective Data Vital Signs Vital Signs: Vital Signs - 24 hr 02/26/21 21:44 02/27/21 06:00 02/27/21 14:00 Temperature 36.9 C 36.3 C L 36.9 C Pulse Rate 80 77 93 Respiratory Rate 16 16 18 Blood Pressure 122/72 138/69 117/64 Pulse Oximetry 100 97 99 Intake/Output Intake/Output: Intake & Output 02/24/21 02/25/21 02/26/21 02/27/21 23:59 23:59 23:59 23:59 Intake Total 720 1040 840 960 Balance 720 1040 840 960 Meds/Results Medications: Active Medications Generic Name Dose Route Start Last Admin Trade Name Freq PRN Reason Stop Dose Admin Acetaminophen 650 mg 02/18/21 17:34 Acetaminophen 325 Mg Tablet PO Q4H PRN Pain 1-3, Fever Hydrocodone Bitart/Acetaminophen 1 tab 02/18/21 17:34 02/22/21 02:21 Hydrocodone/Acetaminophen (*Crx) 5-325 Mg Tablet PO 1 tab Q4-6H PRN Administration pain RATED 4-5 Hydrocodone Bitart/Acetaminophen 2 tab 02/18/21 17:49 02/24/21 09:13 Hydrocodone/Acetaminophen (*Crx) 5-325 Mg Tablet PO 2 tab Q4-6H PRN Administration pain 6 OR GREATER Alendronate Sodium 70 mg 02/22/21 06:30 02/22/21 07:03 Alendronate Sodium 70 Mg Tablet PO 70 mg Sa@0630 TODD Administration Amlodipine Besylate 10 mg 02/19/21 09:00 02/27/21 08:42 Amlodipine Besylate 5 Mg Tablet PO 10 mg DAILY TODD Administration Baclofen 5 mg 02/20/21 22:00 02/27/21 14:15 Baclofen 5 Mg Tablet PO 5 mg Q8HR TODD Administration Docusate Sodium 100 m
[2021-02-27 22:00] VITALS: BP 113/62; PULSE 86; RESP 20; TEMP 36.5; O2SAT 98
[2021-02-28 06:00] VITALS: BP 123/66; PULSE 69; RESP 20; TEMP 36.1; O2SAT 98
[2021-02-28] MEDS: BACLOFEN 5 MG TABLET PO ×3 (06:18→21:18)
[2021-02-28] MEDS: traMADol HCL (*CRX) 50 MG TABLET PO ×3 (06:56→21:18)
[2021-02-28] MEDS: amLODIPine BESYLATE 5 MG TABLET 10 MG PO (08:48)
[2021-02-28] MEDS: RIVAROXABAN 10 MG TABLET PO (08:48)
[2021-02-28] MEDS: VENLAFAXINE HCL XR 75 MG CAP.ER.24H 150 MG PO (08:48)
[2021-02-28] MEDS: NICOTINE (*PBKC) 14 MG PATCH 1 PATCH TRANSDERM (08:49)
[2021-02-28] MEDS: ROSUVASTATIN 10 MG TABLET PO (08:49)
--- NOTE | 2021-02-28 08:50 | PC.NURSE ---
pt refused colace et miralax this morning. updated.
--- NOTE | 2021-02-28 10:21 | WPDNEURORHBP ---
Subjective Date/time seen: 02/28/21 10:21 Interval history: The etiologic diagnosis is fractures of the left superior and inferior pubic rami and right parasymphyseal pubis The patient is a 60-year-old female with past medical history of smoker, chronic hypertension, dementia, hyperlipidemia, depression and osteoporosis. The patient presented [facility] on 02/15/2021 after suffering a fall in her bathroom around 4:30 p.m. Workup: hip pelvis x-ray revealed fractures of the left superior inferior pubic rami and right parasymphyseal pubis. Head CT showed mild nonspecific cerebral white matter disease, which is likely representing chronic small vessel ischemic disease. Cervical spine CT showed severe cervical spondylosis. Chest x-ray revealed emphysema. . Lab work showed hyponatremia and hyperglycemia. Hospital course on 02/16/2021 orthopedics was consulted and recommended weight-bearing as tolerated with a walker. On 02/16/2021 the patient developed nausea and vomiting. A KUB was ordered which revealed moderate to large amount of colonic stool and gas. Patient has now had numerous bowel movements since. Pain management had been using Tylenol [place] and IV morphine. The patient has SCDs in place for DVT prophylaxis and Xarelto has been added. Patient was transferred to the acute rehab unit on 02/18/2021. Sister explained that patient has cognitive deficits in executive functioning, and memory deficits Patient can confabulate information according to sister. [facility] Sister related that in 2015 patient fell and broke her arm and patient began to rely on pain meds Patient is seen in her room. No complaints stated. Review of Systems Review of Systems: All systems reviewed & are unremarkable except as noted in HPI and below Functional Status Ambulation Ability Ability to Ambulate 10 Feet: Standby Assistance Ability to Ambulate 50 Feet With 2 Turns: Standby Assistance Ability to Ambulate 150 Feet: Contact Guard Ambulation Assistive Devices: Walker, Wheeled Transfers Ability Ability to Transfer In/Out of Chair: Standby Assistance Exam Narrative: Exam Narrative: Patient is and alert. Patient does lack insight into her deficits. Heart rate and rhythm is regular. Lungs are clear. BUE are 4/5 Endurance is good. Patient is weightbearing better thru LLE. Endurance is better. Objective Data Vital Signs Vital Signs: Vital Signs - 24 hr 02/27/21 14:00 02/27/21 22:00 02/28/21 06:00 Temperature 36.9 C 36.5 C 36.1 C L Pulse Rate 93 86 69 Respiratory Rate 18 20 20 Blood Pressure 117/64 113/62 123/66 Pulse Oximetry 99 98 98 Intake/Output Intake/Output: Intake & Output 02/25/21 02/26/21 02/27/21 02/28/21 23:59 23:59 23:59 23:59 Intake Total 9152 389 4453 240 Balance 8440 125 7807 240 Meds/Results Medications: Active Medications Generic Name Dose Route Start Last Admin Trade Name Freq PRN Reason Stop Dose Admin Acetaminophen 650 mg 02/18/21 17:34 Acetaminophen 325 Mg Tablet PO Q4H PRN Pain 1-3, Fever Hydrocodone Bitart/Acetaminophen 1 tab 02/18/21 17:34 02/22/21 02:21 Hydrocodone/Acetaminophen (*Crx) 5-325 Mg Tablet PO 1 tab Q4-6H PRN Administration pain RATED 4-5 Hydrocodone Bitart/Acetaminophen 2 tab 02/18/21 17:49 02/24/21 09:13 Hydrocodone/Acetaminophen (*Crx) 5-325 Mg Tablet PO 2 tab Q4-6H PRN Administration pain 6 OR GREATER Alendronate Sodium 70 mg 02/22/21 06:30 02/22/21 07:03 Alendronate Sodium 70 Mg Tablet PO 70 mg Sa@0630 TODD Administration Amlodipine Besylate 10 mg 02/19/21 09:00 02/28/21 08:48 Amlodipine Besylate 5 Mg Tablet PO 10 mg DAILY TODD Administration Baclofen 5 mg 02/20/21 22:00 02/28/21 06:18 Baclofen 5 Mg Tablet PO 5 mg Q8HR TODD Administration Docusate Sodium 100 mg 02/18/21 21:00 02/28/21 08:49 Docusate Sodium 100 Mg Capsule PO Not Give
--- NOTE | 2021-02-28 12:51 | PCDIET ---
Nutrition Follow-Up Complete: Nutrition Diagnosis: Involuntary weight loss related to decreased appetite as evidenced by patient statements. Nutrition Goal: Patient to consume at least 50% of meals and supplements Goal met. Patient consuming 75-100% of most meals on regular diet. Reports good appetite and continuing to drink Ensure Enlive BID. Denies needs or concerns at this time. Last recorded weight is 62 kg. Recommend obtaining new weight. Bowel Motility: Last documented BM on 02/27/21. Labs Reviewed: Hgb (11.7), Hct (35.5), Glu (115), Cr (0.6), Na (136) Meds Noted: Norvasc, Crestor, Ultram Additional Notes: Miralax and Colace not given today. No documented skin breakdown. Will continue to monitor with same goal. Nutrition Monitoring and Evaluation: Follow up in 7 days.
[2021-02-28 14:00] VITALS: BP 109/57; PULSE 95; RESP 22; TEMP 36.8; O2SAT 97
[2021-02-28 19:40] LABS: SARS-CoV-2 RNA PCR Negative
[2021-02-28] MEDS: DOCUSATE SODIUM 100 MG CAPSULE PO (21:18)
[2021-02-28 21:49] VITALS: BP 110/60; PULSE 84; RESP 16; TEMP 36.5; O2SAT 97
[2021-03-01 05:45] VITALS: BP 121/59; PULSE 66; RESP 16; TEMP 36.6; O2SAT 97
[2021-03-01] MEDS: BACLOFEN 5 MG TABLET PO ×3 (06:03→20:07)
[2021-03-01] MEDS: traMADol HCL (*CRX) 50 MG TABLET PO ×3 (06:56→20:07)
[2021-03-01] MEDS: ALENDRONATE SODIUM 70 MG TABLET PO (06:56)
--- NOTE | 2021-03-01 08:47 | WPDNEURORHBP ---
Subjective Date/time seen: 03/01/21 08:47 Interval history: The etiologic diagnosis is fractures of the left superior and inferior pubic rami and right parasymphyseal pubis The patient is a 60-year-old female with past medical history of smoker, chronic hypertension, dementia, hyperlipidemia, depression and osteoporosis. The patient presented [facility] on 02/15/2021 after suffering a fall in her bathroom around 4:30 p.m. Workup: hip pelvis x-ray revealed fractures of the left superior inferior pubic rami and right parasymphyseal pubis. Head CT showed mild nonspecific cerebral white matter disease, which is likely representing chronic small vessel ischemic disease. Cervical spine CT showed severe cervical spondylosis. Chest x-ray revealed emphysema. . Lab work showed hyponatremia and hyperglycemia. Hospital course on 02/16/2021 orthopedics was consulted and recommended weight-bearing as tolerated with a walker. On 02/16/2021 the patient developed nausea and vomiting. A KUB was ordered which revealed moderate to large amount of colonic stool and gas. Patient has now had numerous bowel movements since. Pain management had been using Tylenol [place] and IV morphine. The patient has SCDs in place for DVT prophylaxis and Xarelto has been added. Patient was transferred to the acute rehab unit on 02/18/2021. Sister explained that patient has cognitive deficits in executive functioning, and memory deficits Patient can confabulate information according to sister. [facility] Sister related that in 2015 patient fell and broke her arm and patient began to rely on pain meds Patient is seen in her room. Patient denies pain Review of Systems Review of Systems: All systems reviewed & are unremarkable except as noted in HPI and below Functional Status Ambulation Ability Ability to Ambulate 10 Feet: Standby Assistance Ability to Ambulate 50 Feet With 2 Turns: Standby Assistance Ability to Ambulate 150 Feet: Contact Guard Ambulation Assistive Devices: Walker, Wheeled Transfers Ability Ability to Transfer In/Out of Chair: Standby Assistance Exam Narrative: Exam Narrative: Patient is and alert. Patient does lack insight into her deficits. Heart rate and rhythm is regular. Lungs are clear. BUE are 4/5 Endurance is good. Patient is weightbearing better thru LLE. Endurance is better. Objective Data Vital Signs Vital Signs: Vital Signs - 24 hr 02/28/21 14:00 02/28/21 21:49 03/01/21 05:45 Temperature 36.8 C 36.5 C 36.6 C Pulse Rate 95 84 66 Respiratory Rate 22 H 16 16 Blood Pressure 109/57 L 110/60 121/59 L Pulse Oximetry 97 97 97 Intake/Output Intake/Output: Intake & Output 02/26/21 02/27/21 02/28/21 03/01/21 23:59 23:59 23:59 23:59 Intake Total 840 1440 960 Balance 840 1440 960 Meds/Results Medications: Active Medications Generic Name Dose Route Start Last Admin Trade Name Freq PRN Reason Stop Dose Admin Acetaminophen 650 mg 02/18/21 17:34 Acetaminophen 325 Mg Tablet PO Q4H PRN Pain 1-3, Fever Hydrocodone Bitart/Acetaminophen 1 tab 02/18/21 17:34 02/22/21 02:21 Hydrocodone/Acetaminophen (*Crx) 5-325 Mg Tablet PO 1 tab Q4-6H PRN Administration pain RATED 4-5 Hydrocodone Bitart/Acetaminophen 2 tab 02/18/21 17:49 02/24/21 09:13 Hydrocodone/Acetaminophen (*Crx) 5-325 Mg Tablet PO 2 tab Q4-6H PRN Administration pain 6 OR GREATER Alendronate Sodium 70 mg 02/22/21 06:30 03/01/21 06:56 Alendronate Sodium 70 Mg Tablet PO 70 mg Sa@0630 TODD Administration Amlodipine Besylate 10 mg 02/19/21 09:00 02/28/21 08:48 Amlodipine Besylate 5 Mg Tablet PO 10 mg DAILY TODD Administration Baclofen 5 mg 02/20/21 22:00 03/01/21 06:03 Baclofen 5 Mg Tablet PO 5 mg Q8HR TODD Administration Docusate Sodium 100 mg 02/18/21 21:00 02/28/21 21:18 Docusate Sodium 100 Mg Capsule PO 100 mg Q12
[2021-03-01] MEDS: amLODIPine BESYLATE 5 MG TABLET 10 MG PO (09:02)
[2021-03-01] MEDS: ROSUVASTATIN 10 MG TABLET PO (09:02)
[2021-03-01] MEDS: NICOTINE (*PBKC) 14 MG PATCH 1 PATCH TRANSDERM (09:03)
[2021-03-01] MEDS: polyethylene glycoL 3350 17 GM POWD.PACK PO (09:03)
[2021-03-01] MEDS: VENLAFAXINE HCL XR 75 MG CAP.ER.24H 150 MG PO (09:03)
[2021-03-01] MEDS: RIVAROXABAN 10 MG TABLET PO (09:03)
[2021-03-01] MEDS: DOCUSATE SODIUM 100 MG CAPSULE PO ×2 (09:04→20:07)
[2021-03-01 14:00] VITALS: BP 117/57; PULSE 88; RESP 16; TEMP 36.3; O2SAT 100
[2021-03-01 22:00] VITALS: BP 121/58; PULSE 87; RESP 16; TEMP 36.5; O2SAT 94
[2021-03-02 06:00] VITALS: BP 122/64; PULSE 72; RESP 16; TEMP 36.2; O2SAT 96
[2021-03-02] MEDS: BACLOFEN 5 MG TABLET PO ×3 (06:29→21:26)
[2021-03-02] MEDS: traMADol HCL (*CRX) 50 MG TABLET PO (06:29)
[2021-03-02] MEDS: NICOTINE (*PBKC) 14 MG PATCH 1 PATCH TRANSDERM (08:50)
[2021-03-02] MEDS: amLODIPine BESYLATE 5 MG TABLET 10 MG PO (08:50)
[2021-03-02] MEDS: ROSUVASTATIN 10 MG TABLET PO (08:51)
[2021-03-02] MEDS: RIVAROXABAN 10 MG TABLET PO (08:51)
[2021-03-02] MEDS: VENLAFAXINE HCL XR 75 MG CAP.ER.24H 150 MG PO (08:51)
[2021-03-02] MEDS: DOCUSATE SODIUM 100 MG CAPSULE PO ×2 (08:52→21:26)
--- NOTE | 2021-03-02 09:12 | WPDNEURORHBP ---
Subjective Date/time seen: 03/02/21 09:12 Interval history: The etiologic diagnosis is fractures of the left superior and inferior pubic rami and right parasymphyseal pubis The patient is a 60-year-old female with past medical history of smoker, chronic hypertension, dementia, hyperlipidemia, depression and osteoporosis. The patient presented [facility] on 02/15/2021 after suffering a fall in her bathroom around 4:30 p.m. Workup: hip pelvis x-ray revealed fractures of the left superior inferior pubic rami and right parasymphyseal pubis. Head CT showed mild nonspecific cerebral white matter disease, which is likely representing chronic small vessel ischemic disease. Cervical spine CT showed severe cervical spondylosis. Chest x-ray revealed emphysema. . Lab work showed hyponatremia and hyperglycemia. Hospital course on 02/16/2021 orthopedics was consulted and recommended weight-bearing as tolerated with a walker. On 02/16/2021 the patient developed nausea and vomiting. A KUB was ordered which revealed moderate to large amount of colonic stool and gas. Patient has now had numerous bowel movements since. Pain management had been using Tylenol [place] and IV morphine. The patient has SCDs in place for DVT prophylaxis and Xarelto has been added. Patient was transferred to the acute rehab unit on 02/18/2021. Sister explained that patient has cognitive deficits in executive functioning, and memory deficits Patient can confabulate information according to sister. [facility] Sister related that in 2015 patient fell and broke her arm and patient began to rely on pain meds Patient is seen in her room. Patient denies pain. Discussion of stopping smoking was performed. Patient appears to want to resume smoking at discharge. I instructed the patient that healing of fracture will be delayed or even not occur with ongoing smoking. Will talk with sister to emphasize importance. Review of Systems Review of Systems: All systems reviewed & are unremarkable except as noted in HPI and below Functional Status Ambulation Ability Ability to Ambulate 10 Feet: Standby Assistance Ability to Ambulate 50 Feet With 2 Turns: Standby Assistance Ability to Ambulate 150 Feet: Contact Guard Ambulation Assistive Devices: Walker, Wheeled Transfers Ability Ability to Transfer In/Out of Chair: Standby Assistance Exam Narrative: Exam Narrative: Patient is and alert. Patient does lack insight into her deficits. Heart rate and rhythm is regular. Lungs are clear. BUE are 4/5 Endurance is good. Patient is weightbearing better thru LLE. Endurance is better. Objective Data Vital Signs Vital Signs: Vital Signs - 24 hr 03/01/21 14:00 03/01/21 22:00 03/02/21 06:00 Temperature 36.3 C L 36.5 C 36.2 C L Pulse Rate 88 87 72 Respiratory Rate 16 16 16 Blood Pressure 117/57 L 121/58 L 122/64 Pulse Oximetry 100 94 96 Intake/Output Intake/Output: Intake & Output 02/27/21 02/28/21 03/01/21 03/02/21 23:59 23:59 23:59 23:59 Intake Total 1440 960 960 240 Balance 1440 960 960 240 Meds/Results Medications: Active Medications Generic Name Dose Route Start Last Admin Trade Name Freq PRN Reason Stop Dose Admin Acetaminophen 650 mg 02/18/21 17:34 Acetaminophen 325 Mg Tablet PO Q4H PRN Pain 1-3, Fever Acetaminophen 1,000 mg 03/02/21 09:00 Acetaminophen 500 Mg Tablet PO BID TODD Acetaminophen 1,000 mg 03/02/21 21:00 Acetaminophen 500 Mg Tablet PO BEDTIME TODD Hydrocodone Bitart/Acetaminophen 1 tab 02/18/21 17:34 02/22/21 02:21 Hydrocodone/Acetaminophen (*Crx) 5-325 Mg Tablet PO 1 tab Q4-6H PRN Administration pain RATED 4-5 Hydrocodone Bitart/Acetaminophen 2 tab 02/18/21 17:49 02/24/21 09:13 Hydrocodone/Acetaminophen (*Crx) 5-325 Mg Tablet PO 2 tab Q4-6H PRN Administration pain 6 OR GREATER Alendronate Sodium 70 mg 02/22/21 06:30
[2021-03-02] MEDS: ACETAMINOPHEN 500 MG TABLET 1000 MG PO ×2 (13:26→21:26)
[2021-03-02 13:45] VITALS: BP 115/61; PULSE 81; RESP 16; TEMP 36.3; O2SAT 98
[2021-03-02 21:22] VITALS: BP 105/94; PULSE 76; RESP 18; TEMP 36.3; O2SAT 100
[2021-03-03] MEDS: BACLOFEN 5 MG TABLET PO ×2 (05:41→14:23)
[2021-03-03 06:00] VITALS: BP 141/70; PULSE 66; RESP 16; TEMP 36.3; O2SAT 97
[2021-03-03] MEDS: NICOTINE (*PBKC) 14 MG PATCH 1 PATCH TRANSDERM (08:48)
[2021-03-03] MEDS: amLODIPine BESYLATE 5 MG TABLET 10 MG PO (08:48)
[2021-03-03] MEDS: ACETAMINOPHEN 500 MG TABLET 1000 MG PO ×2 (08:48→14:23)
[2021-03-03] MEDS: VENLAFAXINE HCL XR 75 MG CAP.ER.24H 150 MG PO (08:48)
[2021-03-03] MEDS: RIVAROXABAN 10 MG TABLET PO (08:48)
[2021-03-03] MEDS: ROSUVASTATIN 10 MG TABLET PO (08:48)
--- NOTE | 2021-03-03 10:01 | WPDNEURORHBP ---
Subjective Date/time seen: 03/03/21 10:01 Interval history: The etiologic diagnosis is fractures of the left superior and inferior pubic rami and right parasymphyseal pubis The patient is a 60-year-old female with past medical history of smoker, chronic hypertension, dementia, hyperlipidemia, depression and osteoporosis. The patient presented [facility] on 02/15/2021 after suffering a fall in her bathroom around 4:30 p.m. Workup: hip pelvis x-ray revealed fractures of the left superior inferior pubic rami and right parasymphyseal pubis. Head CT showed mild nonspecific cerebral white matter disease, which is likely representing chronic small vessel ischemic disease. Cervical spine CT showed severe cervical spondylosis. Chest x-ray revealed emphysema. . Lab work showed hyponatremia and hyperglycemia. Hospital course on 02/16/2021 orthopedics was consulted and recommended weight-bearing as tolerated with a walker. On 02/16/2021 the patient developed nausea and vomiting. A KUB was ordered which revealed moderate to large amount of colonic stool and gas. Patient has now had numerous bowel movements since. Pain management had been using Tylenol [place] and IV morphine. The patient has SCDs in place for DVT prophylaxis and Xarelto has been added. Patient was transferred to the acute rehab unit on 02/18/2021. Sister explained that patient has cognitive deficits in executive functioning, and memory deficits Patient can confabulate information according to sister. [facility] Sister related that in 2015 patient fell and broke her arm and patient began to rely on pain meds Patient is seen in her room. Patient denies pain. Discussion of stopping smoking was performed again with better accceptance on patient's part. I instructed the patient that healing of fracture will be delayed or even not occur with ongoing smoking. Will talk with sister to emphasize importance. Patient's pain level was not affected by switching from Tramadol to Tylenol. Patient will not go home on Xarelto but will be going home on ASA Review of Systems Review of Systems: All systems reviewed & are unremarkable except as noted in HPI and below Functional Status Ambulation Ability Ability to Ambulate 10 Feet: Standby Assistance Ability to Ambulate 50 Feet With 2 Turns: Standby Assistance Ability to Ambulate 150 Feet: Contact Guard Ambulation Assistive Devices: Walker, Wheeled Transfers Ability Ability to Transfer In/Out of Chair: Standby Assistance Exam Narrative: Exam Narrative: Patient is and alert. Patient is sitting in bed with legs crossed over each other and in no pain. Patient does lack insight into her deficits. Heart rate and rhythm is regular. Lungs are clear. BUE are 4/5 Endurance is good. Patient is weightbearing better thru LLE. Endurance is better. Objective Data Vital Signs Vital Signs: Vital Signs - 24 hr 03/02/21 13:45 03/02/21 21:22 03/03/21 06:00 Temperature 36.3 C L 36.3 C L 36.3 C L Pulse Rate 81 76 66 Respiratory Rate 16 18 16 Blood Pressure 115/61 105/94 H 141/70 H Pulse Oximetry 98 100 97 Intake/Output Intake/Output: Intake & Output 02/28/21 03/01/21 03/02/21 03/03/21 23:59 23:59 23:59 23:59 Intake Total 580 190 3273 240 Balance 911 763 6010 240 Meds/Results Medications: Active Medications Generic Name Dose Route Start Last Admin Trade Name Ranjitq PRN Reason Stop Dose Admin Acetaminophen 1,000 mg 03/02/21 21:00 03/02/21 21:26 Acetaminophen 500 Mg Tablet PO 1,000 mg BEDTIME TODD Administration Acetaminophen 1,000 mg 03/02/21 13:00 03/03/21 08:48 Acetaminophen 500 Mg Tablet PO 1,000 mg BID TODD Administration Hydrocodone Bitart/Acetaminophen 1 tab 02/18/21 17:34 02/22/21 02:21 Hydrocodone/Acetaminophen (*Crx) 5-325 Mg Tablet PO 1 tab Q4-6H PRN Administration pain RATED 4-5 Hydrocodone Bitart/Acetaminophen 2 tab 02/18/21
[2021-03-03 10:46] LABS: Basophils Percent Auto 0.6 % (0.2-1.2); Eosinophils Absolute Auto 0.1 K/mm3 (0-0.3); Eosinophils Percent Auto 1.6 % (0-4.4); Hematocrit 37.2 % (37.0-47.0); Hemoglobin 12.1 g/dL (12.0-15.0); Immature Granulocyte Absolute 0.02 K/mm3 (0.00-0.031); Immature Granulocyte Percent A 0.3 % (0-0.5); Lymphocytes Percent Auto 15.9 % (18.3-44.2); Mean Corpuscular HGB Conc 32.5 g/dl (32-36); Mean Corpuscular Hemoglobin 30.2 pg (26-34); Mean Corpuscular Volume 92.8 fl (80-100); Mean Platelet Volume 10.1 fl (7.4-10.4); Monocytes Absolute Auto 0.4 K/mm3 (0.1-0.6); Monocytes Percent Auto 6.1 % (2.6-8.5); Neutrophils Absolute Auto 4.7 K/mm3 (1.3-6.7); Neutrophils Percent Auto 75.5 % (45.5-73.1); Platelet Count Result 409 k/mm3 (150-375); Red Blood Count 4.01 M/mm3 (4.2-5.4); White Blood Count 6.3 K/mm3 (4.5-10.0)
[2021-03-03 10:55] LABS: Alanine Aminotransferase 17 U/L (4-35); Albumin Level 3.9 g/dL (3.5-5.1); Alkaline Phosphatase 141 U/L (38-126); Anion Gap 6 mmol/L (8-16); Aspartate Amino Transferase 22 U/L (14-36); Bilirubin,Total 0.2 mg/dL (0.2-1.3); Blood Urea Nitrogen 15 mg/dL (7-17); Carbon Dioxide 28 mmol/L (22-30); Chloride 104 mmol/L (98-107); Estimated CRCL calculation 72 ml/min; Estimated Glomerular Filt Rate > 60; Glucose 161 mg/dL (65-105); Potassium 3.9 mmol/L (3.4-5.0); Sodium 138 mmol/L (137-145)
[2021-03-03 14:00] VITALS: BP 120/60; PULSE 103; RESP 20; TEMP 36.6; O2SAT 97
[2021-03-03 20:00] VITALS: PULSE 80; RESP 16; O2SAT 98
[2021-03-03] MEDS: ACETAMINOPHEN 325 MG TABLET 650 MG PO (21:04)
[2021-03-03] MEDS: DOCUSATE SODIUM 100 MG CAPSULE PO (21:04)
[2021-03-03 21:13] VITALS: BP 128/69; PULSE 80; RESP 16; TEMP 36.7; O2SAT 98
[2021-03-04 06:00] VITALS: BP 133/68; PULSE 81; RESP 16; TEMP 36.9; O2SAT 96
[2021-03-04] MEDS: ASPIRIN 81 MG ENTERIC TABLET PO (09:11)
[2021-03-04] MEDS: BACLOFEN 5 MG TABLET PO (09:11)
[2021-03-04] MEDS: amLODIPine BESYLATE 5 MG TABLET 10 MG PO (09:11)
[2021-03-04] MEDS: ACETAMINOPHEN 325 MG TABLET 650 MG PO (09:11)
[2021-03-04] MEDS: NICOTINE (*PBKC) 7 MG PATCH 1 PATCH TRANSDERM (09:13)
[2021-03-04] MEDS: DOCUSATE SODIUM 100 MG CAPSULE PO (09:13)
[2021-03-04] MEDS: VENLAFAXINE HCL XR 75 MG CAP.ER.24H 150 MG PO (09:13)
[2021-03-04] MEDS: polyethylene glycoL 3350 17 GM POWD.PACK PO (09:13)
[2021-03-04] MEDS: ROSUVASTATIN 10 MG TABLET PO (09:13)
--- NOTE | 2021-03-04 09:32 | PM.DS ---
DS: Admitting Diagnosis Admitting Diagnosis Admitting Diagnosis: Pelvic fracture: Left superior and inferior pubic rami fx and right parasymphyseal pubic fracture DS: Discharge Diagnosis Discharge Diagnosis (1) Constipation: Code(s): K59.00 - Constipation, unspecified Status: Acute Assessment and Plan: Bowel program. Will schedule Miralax daily (2) Closed fracture of pubic ramus: Qualifiers: Encounter type: initial encounter Laterality: left Qualified Code(s): S32.592A - Other specified fracture of left pubis, initial encounter for closed fracture Code(s): S32.599A - Other specified fracture of unspecified pubis, initial encounter for closed fracture Status: Acute Assessment and Plan: PT OT Tramadol 50 mg BID and HS 02/24/21 Tramadol changed to 25 mg and then changed back to 50 mg 03/02/21 Will change to Tylenol 1000mg TID Good response. Check labs due to history of alcoholism and use of Tylenol. 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 Patient has known history of cognitive deficits to executive functioning and memory. Patient demonstrates poor judgment and lacks insight. Speech eval and treatment to assist with learning of new material. Patient made progress. Speech was discontinued (5) Essential (primary) hypertension: Code(s): I10 - Essential (primary) hypertension Status: Chronic Assessment and Plan: Norvasc 10 mg daily. (6) Hyperlipidemia: Qualifiers: Hyperlipidemia type: unspecified Qualified Code(s): E78.5 - Hyperlipidemia, unspecified Code(s): E78.5 - Hyperlipidemia, unspecified Status: Chronic Assessment and Plan: Crestor 10 mg daily (7) Tobacco dependence: Code(s): F17.200 - Nicotine dependence, unspecified, uncomplicated Status: Chronic Assessment and Plan: Nicotine patch. Education given on importance of tobacco stoppage. Patient appears as if she will continue to smoke (8) Depressive disorder: Code(s): F32.9 - Major depressive disorder, single episode, unspecified Status: Chronic Assessment and Plan: Effexor 150 mg q.a.m. (9) Osteoporosis: Code(s): M81.0 - Age-related osteoporosis without current pathological fracture Status: Chronic Assessment and Plan: Fosamax 70 mg every Wednesday Will discontinue at this time due to acute fracture. Patient to resume at a later date. Will discuss with Orthopedics when to resume. (10) DVT prophylaxis: Code(s): Z29.9 - Encounter for prophylactic measures, unspecified Status: Acute Assessment and Plan: Xarelto 10 mg daily. I spoke with Dr Archer regarding discharge and continuation of xarelto. Patient will go home on ASA DS: Summary Hospital Course Hospital Course: Chief Complaint: fall with pelvic fracture Narrative: HISTORY OF PRESENT ILLNESS: The etiologic diagnosis is fractures of the left superior and inferior pubic rami and right parasymphyseal pubis I saw this patient [id number] on 02/18/2021 thru 03/04/21 The patient is a 60-year-old female with past medical history of smoker, chronic hypertension, dementia, hyperlipidemia, depression and osteoporosis. The patient presented [facility] on 02/15/2021 after suffering a fall in her bathroom around 4:30 p.m.. Patient states that she was getting out of the shower when she slipped and f
== END 2021-03-04 10:50 | DRG 561 ==
PROVIDERS: Admitting Provider Physical Medicine & Rehabilitation; Visit Provider Physical Medicine & Rehabilitation
DX: S32.592D Other specified fracture of left pubis, subsequent encounter for fracture with routine healing (principal); W19.XXXD Unspecified fall, subsequent encounter; E78.5 Hyperlipidemia, unspecified; F03.90 Unspecified dementia, unspecified severity, without behavioral disturbance, psychotic disturbance, mood disturbance, and anxiety; F32.9 Major depressive disorder, single episode, unspecified; F17.210 Nicotine dependence, cigarettes, uncomplicated; I10 Essential (primary) hypertension; J43.9 Emphysema, unspecified; K59.00 Constipation, unspecified; M81.0 Age-related osteoporosis without current pathological fracture; Z20.822 Contact with and (suspected) exposure to COVID-19
CPT/HCPCS: 36415; 74019; 80048; 80053; 81001; 82306; 85014; 85018; 85025; 92507; 92523; 96361; 96365; 96375; 96376; 97110; 97116; 97161; 97165; 97530; 97535; 97542; A9270; C9803; G0378; J0131; J2270; J2405; J2550; J7030; U0003; U0005

== ENCOUNTER 2024-09-07 16:18 | Emergency (ER) | payer MEDICARE, OTHER, SELFPAY ==
--- NOTE | 2024-09-07 16:30 | ED_ITS ---
HPI - Skin/Abscess/Foreign Bdy General Chief complaint: Skin/Abscess/Foreign Body Stated complaint: spider bite Time Seen by Provider: 09/07/24 16:48 Source: patient, RN notes reviewed and old records reviewed Mode of arrival: ambulatory Limitations: no limitations History of Present Illness HPI narrative: 64-year-old female presents to the [facility] with concerns for a insect bite, redness to the left hip. Patient describes it being very itchy. Noticed it today. No treatment prior to arrival Onset (ago): hour(s) Treatments prior to arrival: none Related Data Home Medications Medication Instructions Recorded Confirmed alendronate 70 mg tablet 70 mg PO WEEKLY 02/15/21 02/18/21 amlodipine 10 mg tablet 10 mg PO DAILY 02/15/21 02/18/21 rosuvastatin 10 mg tablet (Crestor) 10 mg PO DAILY 02/15/21 02/18/21 venlafaxine 150 mg tablet,extended 150 mg PO QAM 02/15/21 02/18/21 release 24 hr Allergies Allergy/AdvReac Type Severity Reaction Status Date / Time Penicillins Allergy Unknown Unknown Verified 02/15/21 21:59 Review of Systems Review of Systems: All systems reviewed & are unremarkable except as noted in HPI and below Constitutional: Constitutional: Reports no additional constitutional complaints ENT: Reports system reviewed and no additional complaints, except as documented Cardiovascular: Cardiovascular: Reports no additional cardiovascular complaints, Denies chest pain and Denies dyspnea Respiratory: Respiratory: Reports no additional respiratory complaints, Denies chest congestion, Denies cough and Denies dyspnea Gastrointestinal: Gastrointestinal: Reports no additional gastrointestinal complaints, Denies abdominal pain, Denies nausea and Denies vomiting Musculoskeletal: Musculoskeletal: Reports no additional musculoskeletal complaints Integumentary/Breasts: Skin/Breast: Reports as per HPI PMFSH Past Medical History Medical History Dementia Depressive disorder Essential (primary) hypertension Hyperlipidemia Left forearm fracture Osteoporosis Family History Family History Mother Breast cancer Social History Social History Social History: patient lives at [facility]. Prior to fall patient was completely independent requiring no adaptive devices. Patient smokes a half a pack of cigarettes per day. Smoking packs per day: 0.5 Smoking cigarettes per day: 10.0 Years smoked: 40 Smoking pack-years: 20.00 Smoking status: Light tobacco smoker Alcohol intake: never Substance use: never Substance use type: does not use Gender identity (if verbalized by the patient): Female Sexual Orientation (if Verbalized by the Patient): Straight or Heterosexual Spiritual care concerns: No Comments At the time of my signature, I reviewed and agree with the nursing past medical, surgical, social, and family history. There is no relevant family history pertinent to the patient complaint. Exam Const: General: cooperative, healthy appearing, comfortable, no acute distress, well developed, alert and well nourished Nutritional Appearance: well nourished Orientation/consciousness: patient oriented x3 Limitations: no limitations HENMT: Head: normal to inspection Ears: hearing grossly normal bilaterally and external ears normal Face/Nose/Sinus: Normal external nose present, normal facial exam and face symmetric Face and sinus: normal facial exam and face symmetric Eyes: General: appearance normal, both eyes and all related structures Alignment and Position: alignment normal Periorbital: periorbital findings normal Neck: Neck: normal visual inspection, full ROM, no lymphadenopathy and no meningeal signs Chest: Chest palpation & inspection: normal inspection of the chest Resp: Effort & Inspection: normal respiratory effort and able to speak in complete sentences Cardio: Rate: regular rate Skin: General skin exam: normal color and no rashes or lesions noted Lesions: no lesions Rashes: no rashes Wounds: no wounds Other: 6.5 x 4 cm erythema without fluctuance. No swelling. Mildly increased warmth. Left lateral hip Neuro: General: patient oriented x3, gait normal, tone normal, moves all extremities and no meningeal signs Cognition (Neuro): normal cognition Speech: normal speech Gait exam (Neuro): Normal gait present Extrem: General: normal to inspection, full ROM, capillary refill normal and normal gait Psych: Appearance: grossly normal and well kempt Mental Status: mental status grossly normal Speech and movement: Normal speech and movement present and Clear speech present Affect: normal affect Attitude: cooperative Course Course Level of Care: Express Care Visit Vital Signs Vital signs: Vital Signs Temperature 97.4 F L 09/07/24 16:40 Pulse Rate 102 H 09/07/24 16:40 Respiratory Rate 20 09/07/24 16:40 Blood Pressure 116/75 09/07/24 16:40 Pulse Oximetry 98 09/07/24 16:40 Oxygen Delivery Room Air 09/07/24 16:40 Temperature 97.4 F L 09/07/24 16:40 Pulse Rate 102 H 09/07/24 16:40 Respiratory Rate 20 09/07/24 16:40 Blood Pressure 116/75 09/07/24 16:40 Pulse Oximetry 98 09/07/24 16:40 Oxygen Delivery Room Air 09/07/24 16:40 Reviewed MDM - Skin/Abscess/Foreign Bdy MDM Narrative Medical decision making narrative: Patient sitting comfortably in exam room. Nontoxic, vitals stable. Patient presents with her sister with the erythema to the left hip Concern for localized reaction versus cellulitis, covering for both Patient appropriate for outpatient treatment Discharge instructions reviewed with patient, as well as provided in writing per nursing staff. The instructions also include specific and strict return/GO TO THE ER as well as f/u information. All questions have been answered, and the patient deny any further questions with discharge and discharge plan. Some parts of this dictation were generated by voice recognition software and may contain typographical and/or grammatical inaccuracies. Differential Diagnosis Differential diagnosis: Likely abscess of skin or subcutaneous tissue, urticaria, cellulitis, insect bites and contact dermatitis Critical Care Time Critical Care Time Critical Care Time: No Discharge Plan Discharge Clinical Impression: Insect bites, Dermatitis Patient Disposition: Home, Self-Care Condition: Stable Instructions: Antibiotic Form, Insect Bite or Sting (ED) Additional Instructions: The most important part of your care is follow up with Primary care provider. Take Benadryl 25 mg every 8 hours for itching Take Zyrtec every day Take Pepcid 20mg daily for 7 days Apply hydrocortisone cream 2 to 3 times a day Wash with soapy water Avoid hot showers, Take cool showers. Hot showers will make rashes worse Apply cool compresses every 2-3 hours for 15 minutes Do not scratch the area this will increase the chances of infection Go to the ER for new or worsening symptoms such as shortness of breath. Patient Language: Mauritian Prescriptions: New doxycycline monohydrate 100 mg tablet 100 mg PO BID Qty: 14 0RF No Action alendronate 70 mg Tablet 70 mg PO WEEKLY amlodipine 10 mg Tablet 10 mg PO DAILY rosuvastatin [Crestor] 10 mg Tablet 10 mg PO DAILY venlafaxine 150 mg Tablet Extended Release 24hr 150 mg PO QAM acetaminophen [Mapap (acetaminophen)] 325 mg Tablet 650 mg PO Q4H PRN (Reason: Pain 1-3, Fever) Qty: 21 0RF acetaminophen [Mapap (acetaminophen)] 325 mg Tablet 650 mg PO Q8H PRN (Reason: pain) Qty: 60 0RF Rx Instructions: one or two tablets q8h prn pain aspirin 81 mg Tablet,Delayed Release (Dr/Ec) 81 mg PO QAM Qty: 30 0RF baclofen 10 mg Tablet 5 mg PO BID Qty: 21 0RF Rx Instructions: twice a day for 7 days then once a day for 7 days then stop nicotine 7 mg/24 hr Patch 24 Hour 1 patch transdermal QAM Qty: 14 0RF Follow-up/Referrals: UNKNOWN,DOCTOR [Non-Staff] - Stand Alone Forms: Work/School Release IP Time of Disposition: 17:02
[2024-09-07 16:40] VITALS: BP 116/75; PULSE 102; RESP 20; TEMP 36.3; O2SAT 98
== END 2024-09-07 17:03 | disposition home or self-care (01) ==
PROVIDERS: Emergency Provider Nurse Practitioner
DX: S70.262A Insect bite (nonvenomous), left hip, initial encounter (principal); W57.XXXA Bitten or stung by nonvenomous insect and other nonvenomous arthropods, initial encounter; L30.9 Dermatitis, unspecified; F17.210 Nicotine dependence, cigarettes, uncomplicated; F03.90 Unspecified dementia, unspecified severity, without behavioral disturbance, psychotic disturbance, mood disturbance, and anxiety; I10 Essential (primary) hypertension; E78.5 Hyperlipidemia, unspecified; M81.0 Age-related osteoporosis without current pathological fracture; F32.A Depression, unspecified
CPT/HCPCS: 99213; G0463